=== PATIENT | female | born 1995 | race Caucasian/White ===

== ENCOUNTER 2023-11-16 09:58 | Outpatient (AMB) | payer OTHER, SELFPAY ==
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
[2023-11-16 10:25] VITALS: BP 110/60; PULSE 146; O2SAT 100; BMI 26.1
[2023-11-16 11:42] VITALS: PULSE 90
== END 2023-11-16 11:29 | disposition home or self-care (01) ==
PROVIDERS: PCP Nurse Practitioner Family; Visit Provider Nurse Practitioner Family
DX: C20 Malignant neoplasm of rectum (principal); Z93.3 Colostomy status; F20.0 Paranoid schizophrenia; C78.00 Secondary malignant neoplasm of unspecified lung; D50.8 Other iron deficiency anemias; Z02.71 Encounter for disability determination; B00.9 Herpesviral infection, unspecified; F41.1 Generalized anxiety disorder; Z09 Encounter for follow-up examination after completed treatment for conditions other than malignant neoplasm
CPT/HCPCS: 99205

== ENCOUNTER 2023-12-14 11:26 | Outpatient (AMB) | payer OTHER, SELFPAY ==
[2023-12-14 11:31] VITALS: BP 126/72; PULSE 130; O2SAT 99; BMI 25.8
--- NOTE | 2023-12-14 11:31 | A.OFFPC_ITS ---
Vital Signs 12/14/23 11:31 Height 5 ft 7 in Weight 165 lb BMI 25.8 BP 126/72 Blood Pressure Location Lt brachial Position Sitting Pulse 130 H Pulse Source Pulse Oximeter Pulse Oximetry (%) 99 Oxygen Delivery Method Room Air Intake Visit Reasons: referrals, follow up from hospital Intake Note: Pt presents to the office today for referrals, and a follow up from the hospital. Allergies bupropion [From Wellbutrin] Allergy (Intermediate, Verified 12/14/23 11:49) Unknown paroxetine [From Paxil] Allergy (Intermediate, Verified 12/14/23 11:49) Seizure Penicillins Allergy (Intermediate, Verified 12/14/23 11:49) Hives Medication List - Last Reconciled 12/14/23 by MAURA Redman-NACHO acetaminophen ER 1,300 mg (2 x 650 mg) PO Q12H 30 days clozapine 400 mg PO BEDTIME docusate sodium 100 mg PO BID enoxaparin 40 mg subcut DAILY ferrous fumarate-vitamin C 200 mg (65 mg iron)-25 mg 1 tab PO DAILY lorazepam 1 mg PO DAILY PRN ondansetron 4 mg PO Q8H PRN 30 days pantoprazole 40 mg PO DAILY prazosin 6 mg PO BEDTIME simethicone (Gas Relief (simethicone)) 125 mg PO QID PRN 30 days therapeutic multivitamin 1 tab PO DAILY valacyclovir 1,000 mg PO DAILY Tobacco use date assessed: 11/16/23 HPI HPI Comments History of Present Illness Details 27-year-old female schizophrenia, metast atic 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 Admitted for abd pain. CT showed moderate distension of bladder, concern for urinary outlet obs. Signs of osseous mets S4-S5. Nobles cath was placed with relief of pain. s/p palliative radiation x 5 sessions Consult w/ pain mgmt : morpine and oxy IR ordered. Today mom and patient report that her pain is well managed using APAP ER every morning. And as needed in the evening. Do not want to continue the opioids as they felt like this cause too much sedation and did not help greatly with the pain. Completed 5 rounds of radiation. [place] that this is helped greatly with the pain. Nobles catheter is draining yellow urine. No current issues. Wonders how long this needs to be in place. Needs prescription for adult briefs. Having anal leakage. Also having some vaginal discharge which is chronic. Has not had a consult with Mary Jimenez or Shanna Ribera yet. Reports issues with the referral process. Made aware today that [facility] does have an Oncology group. Patient and mom are very excited to hear this and are interested in setting up a referral. [facility] Medical History Back pain Tremor Imbalance Incontinence Memory loss Schizoaffective disorder Anxiety and depression Genital herpes Acid reflux IBS (irritable bowel syndrome) Cancer Surgical History History of creation of ostomy Cancer determined by lung biopsy Family History Father Substance use disorder High blood pressure Alcoholism in family Mother Substance use disorder Mental health disorder Alcoholism in family Social History Housing: House Alcohol intake: never Patient Tobacco Use Status: Never used Tobacco e-Cigarette/Vaping Use: Never Used Second Hand Smoke Exposure: No service: No Current occupational status: disabled Cognitive needs: No Hearing needs: No Vision needs: Yes (reading glasses) Questionnaire PHQ-9 Over the last 2 weeks, how often have you been bothered by any of the following problems? 1. Little interest or pleasure in doing things: more than half the days 2. Feeling down, depressed, or hopeless: more than half the days 3. Trouble falling or staying asleep, or sleeping too much: not at all 4. Feeling tired or having little energy: more than half the days 5. Poor appetite or overeating: more than half the days 6. Feeling bad about yourself - or that you are a failure or have let yourself or your family down: not at all 7. Trouble concentrating on things, such as reading the newspaper or watching television: nearly every day 8. Moving or speaking so slowly that other people could have noticed. Or the opposite - being so fidgety or restless that you have been moving around a lot more than usual: nearly every day 9. Thoughts that you would be better off or of hurting yourself in some way: not at all Total score: 14 Depression Screening Interpretation: Positive (pt has psychiatrist and medication) Depression Screening Follow-up: Existing condition and In treatment Depression Screening Done: Yes 24797 - PHQ-9 Billing: Yes Source: Developed by Drs. Garland Duron, Kristy Rincon, Christiano Terry and colleagues, with an educational doug from [employer]. Thrive Questionnaire Date Thrive assessed: 11/16/23 I am a: Patient What is your living situation today?: I have a steady place to live Within the past 12 months, did the food you bought not last and you didn't have the money to get more?: Never true Within the past 12 months, did you worry whether your food would run out before you got money to buy more?: Never true Do you have trouble paying for medicines?: No Do you have trouble getting transportation to medical appointments?: No Do you have trouble paying your heating and electricity bill?: No Do you have trouble taking care of your child, family member or friend?: No Do you have trouble with day-to-day activities such as bathing, preparing meals, shopping, managing finances, etc.?: Yes (need reminders) Are you currently unemployed and looking for a job?: No Are you interested in more education?: No Please select the resources that you would like help with: None Currently or been in a relationship where the following occur: no concerns reported THRIVE Score: 0 AUDIT C Alcohol Use Questionnaire (AUDIT-C) 1. How often do you have a drink containing alcohol?: Never 3. How often do you have six or more drinks on one occasion?: Never Total Score: 0 Score Reviewed/Action Taken: Yes CLINTON-7 AMB Questionnaire CLINTON-7 Date CLINTON - 7 assessed: 11/16/23 Feeling nervous, anxious, or on edge: 2 = More than half the days (part of disorder) Not being able to stop or control worryin = More than half the days (part of this order) Worrying too much about different things: 2 = More than half the days (part of disorder) Trouble relaxin = More than half the days Being so restless that it is hard to sit still: 2 = More than half the days (part of disorder and cancer) Becoming easily annoyed or irritable: 2 = More than half the days (part of disorder) Feeling afraid as if something awful might happen: 0 = Not at all Total CLINTON-7 score (0-4 normal; 5-9 mild; 10-14 moderate; 15-21 severe): 12 Source: Developed by Drs. Garland Duron, Kristy Rincon, Christiano Terry and colleagues, with an educational doug from [employer]. CLINTON-7 Assessment Billing CLINTON-7 Assessment Tool: CLINTON-7 Assessment 60799 Review of Systems Const All systems reviewed & are unremarkable except as noted in HPI and below Physical exam (Primary Care) Vital Signs: Last Vital Signs Pulse 130 H 12/14/23 11:31 BP 126/72 12/14/23 11:31 Pulse Ox 99 12/14/23 11:31 Oxygen Delivery Method Room Air 12/14/23 11:31 BMI result Body Mass Index 25.8 Tobacco/Smoking Status: Tobacco use Status Tobacco use date assessed 11/16/23 12/14/23 11:31 Patient Tobacco Use Status Never used Tobacco 12/14/23 11:31 e-Cigarette/Vaping Use Never Used 12/14/23 11:31 PHQ-9: PHQ-9 Score PHQ-9: Total score 14 12/14/23 11:42 Depression Screening Interpretation: Positive (pt has psychiatrist and medication) Depression Screening Follow-up: Existing condition and In treatment Thrive Assessment: Date of Thrive Assessment Date Thrive assessed 11/16/23 12/14/23 11:31 Currently or been in a relationship where the following occur: no concerns reported Const Other: Accompanied by mom, Domenica. Awake alert. Crying intermittently. Answers questions. Can become agitated quickly if she feels miss information, easily redirected, cooperative & pleasant Mucous membranes moist Regular rate and rhythm Lung sounds clear to auscultation bilat Abdomen with positive bowel sounds x4. Colostomy in the left lower quadrant with brown stool. Skin intact FC intact and draining yellow urine No edema bilateral lower extremities Assessment and Plan Assessment & Plan (1) Hospital discharge follow-up: Code(s): Z09 - Encounter for follow-up examination after completed treatment for conditions other than malignant neoplasm Plan: Prescription written for adult incontinent briefs. Okay to continue with the APAP ER 650 mg twice per day. I also agree with staying off of the narcotics if her pain is well managed without. (2) Urinary catheter in place: Comment: Placed for urinary outlet obstruction noted on CT scan. I do not have the results of the CT scan. Nobles catheter was placed on 12/01/2023. Stat referral placed to [facility]'s Urology Department for further evaluation and treatment. Code(s): Z96.0 - Presence of urogenital implants Plan: This note is constructed using voice recognition software. While every effort has been made to ensure accuracy in sheep clipper, still errors may have been included Sometimes, these errors may affect the content or meaning of the given sentence . Total time spent caring for the patient today was 60 minutes. This includes time spent before the visit reviewing the chart, time spent during the visit, and time spent after the visit on documentation (3) Rectal adenocarcinoma metastatic to lung: Comment: confirmed via biopsy 11/[address] [facility] . Family has asked for referral to [facility], including [facility] for 2nd opinions and to come up with a treatment plan. However no actual appointments have been scheduled yet other than initial consult at [facility] 12/26/23. s/p palliative radiation x 5, completed 12/12/23. She is interested in following up with [facility] oncology group for a consultation. I have placed a stat referral. This is active and current diagnosis. There is no treatment at the current time other than status post loop diverting colostomy. Code(s): C20 - Malignant neoplasm of rectum; C78.00 - Secondary malignant neoplasm of unspecified lung Plan Return to office in 4 weeks to follow-up Orders: Referrals Urology Referral Z96.0 - Presence of urogenital implants Hematology & Oncology Referral C20 - Malignant neoplasm of rectum, C78.00 - Secondary malignant neoplasm of unspecified lung Medications: New diaper,brief,adult,disposable (Briefs, Adult-Extra Large) As directed, Frontal Tape Briefs - Diaper With Tabs 30 ea 11RF R19.8 - Other specified symptoms and signs involving the digestive system and abdomen, R32 - Unspecified urinary incontinence Coding Level of Care Code TCM High MDM <= 7 Days Diagnoses Hospital discharge follow-up Z09 Ur[address] Z96.0 Rectal adenocarcinoma metastatic to lung C20; C78.00 Additional Codes CLINTON-7 Assessment Billing - CLINTON-7 Assessment Tool: CLINTON-7 Assessment 22429 ([id number])
== END 2023-12-14 12:20 | disposition home or self-care (01) ==
PROVIDERS: PCP Nurse Practitioner Family; Visit Provider Nurse Practitioner Family
DX: Z09 Encounter for follow-up examination after completed treatment for conditions other than malignant neoplasm (principal); Z96.0 Presence of urogenital implants; C20 Malignant neoplasm of rectum; C78.00 Secondary malignant neoplasm of unspecified lung
CPT/HCPCS: 99214

== ENCOUNTER 2023-12-17 10:32 | Outpatient (AMB) | payer OTHER, SELFPAY ==
--- NOTE | 2023-12-17 10:53 | A.OFFVIS_ITS ---
Intake Intake Visit Reasons: metastatic cancer/ nobles cath/VT? Intake Note: NEW Patient presents today to established treatment for Mestatatic Cancer/Nobles Cath: Meds- Prozin Allergies to Antibiotic- No Known Allergies Blood Thinner- None Post Void Residual: 0ml Cigarette Catcher Required: No Accompanied by: Mother Allergies bupropion [From Wellbutrin] Allergy (Intermediate, Verified 12/20/23 17:09) Unknown paroxetine [From Paxil] Allergy (Intermediate, Verified 12/20/23 17:09) Seizure Penicillins Allergy (Intermediate, Verified 12/20/23 17:09) Hives Medication List - Last Reviewed 12/17/23 by Lilly Adams CMA acetaminophen ER 1,300 mg (2 x 650 mg) PO Q12H 30 days clozapine 400 mg PO BEDTIME diaper,brief,adult,disposable (Briefs, Adult-Extra Large) As directed, Frontal Tape Briefs - Diaper With Tabs docusate sodium 100 mg PO BID enoxaparin 40 mg subcut DAILY ferrous fumarate-vitamin C 200 mg (65 mg iron)-25 mg 1 tab PO DAILY lorazepam mg PO ondansetron 4 mg PO Q8H PRN 30 days pantoprazole 40 mg PO DAILY prazosin 6 mg PO BEDTIME simethicone (Gas Relief (simethicone)) 125 mg PO QID PRN 30 days therapeutic multivitamin 1 tab PO DAILY valacyclovir 1,000 mg PO DAILY HPI HPI Comments History of Present Illness Details Maria D is a 27-year-old female with history of schizophrenia diagnosed with metastatic rectal cancer. She is here for evaluation due to urinary retention she has a Nobles in place. The patient presents with her mom who gives part of the history. She states that after the surgery for colostomy placement her daughter was on a lot of pain medication including morphine which she feels contributed to the bladder problem. She is currently only on Tylenol 650 mg twice a day p.r.n. she states that she has also completed radiation. Voiding trial today was successful. Follow up in one month. PENDING SALE TO [facility] Medical History Back pain Tremor Imbalance Incontinence Memory loss Schizoaffective disorder Anxiety and depression Genital herpes Acid reflux IBS (irritable bowel syndrome) Cancer Surgical History History of creation of ostomy Cancer determined by lung biopsy Family History Father Substance use disorder High blood pressure Alcoholism in family Mother Substance use disorder Mental health disorder Alcoholism in family Social History Housing: House Alcohol intake: never Patient Tobacco Use Status: Never used Tobacco e-Cigarette/Vaping Use: Never Used Second Hand Smoke Exposure: No service: No Current occupational status: disabled Cognitive needs: No Hearing needs: No Vision needs: Yes (reading glasses) Review of Systems Const All systems reviewed & are unremarkable except as noted in HPI and below Reports no additional complaints Eyes Reports no additional complaints ENT Reports no additional complaints Card Denies dyspnea Resp Denies cough and Denies dyspnea GI Reports no additional complaints Reports no additional complaints Musc Reports no additional complaints Skin/Breast Reports system reviewed and no additional complaints, except as documented Neuro Reports no additional complaints Psych Reports no additional complaints Endo Reports no additional complaints Isaias/Lymph Reports no additional complaints Aller/Immun Reports no additional complaints Physical Exam Const General: cooperative, healthy appearing and no acute distress Orientation/consciousness: patient oriented x3 HEENT Head: Yes normal to inspection, Yes normocephalic and Yes atraumatic Eyes Conjunctivae: conjunctivae normal Neck Neck: Yes normal visual inspection and Yes trachea midline Chest Chest palpation & inspection: normal inspection of the chest Resp Effort & Inspection: normal respiratory effort Cardio Rate: regular rate GI Other: Colostomy noted on the lower abdomen Inspection: Yes normal to inspection Palpation (GI): Soft to palpation Other: Nobles in place Skin General skin exam: no rashes or lesions noted Neuro General: patient oriented x3 Extrem General: No edema Psych Appearance: grossly normal Office Procedures Bladder/Catheter Procedure Details: Patient presents to office for voiding trial. Instilled 120mls of sterile water through catheter. 16 fr catheter removed, patient tolerated well. DANNY to bladder scan patient. 61548-Ilyflrbowm of Bladder Procedure code (CPT) selection complete Post Void Residual Post Residual Void Post Void Residual (PVR): 0 64170-Zfhr Void Residual by ultrasound Assessment & Plan Assessment & Plan (1) Urinary catheter in place: Comment: Placed for urinary outlet obstruction noted on CT scan. I do not have the results of the CT scan. Nobles catheter was placed on 12/01/2023. Stat referral placed to [facility]'s Urology Department for further evaluation and treatment. Code(s): Z96.0 - Presence of urogenital implants (2) Presence of sigmoid colostomy: Comment: diverting loop colostomy Code(s): Z93.3 - Colostomy status (3) Schizophrenia: Comment: lives in [facility]; managed by Psychiatry Code(s): F20.9 - Schizophrenia, unspecified Qualifiers: Schizophrenia type: paranoid schizophrenia Qualified Code(s): F20.0 - Paranoid schizophrenia (4) Rectal adenocarcinoma metastatic to lung: Comment: confirmed via biopsy 11/2023 at [facility] . Family has asked for referral to [facility], including [facility] for 2nd opinions and to come up with a treatment plan. However no actual appointments have been scheduled yet other than initial consult at [facility] 12/26/23. s/p palliative radiation x 5, completed 12/12/23. She is interested in following up with [facility]'s oncology group for a consultation. I have placed a stat referral. This is active and current diagnosis. There is no treatment at the current time other than status post loop diverting colostomy. Code(s): C20 - Malignant neoplasm of rectum; C78.00 - Secondary malignant neoplasm of unspecified lung Plan Voiding trial today was successful. Follow-up in 1 month Orders: Orders AMB Bladder/Catheter Procedure 12/17/23 Z96.0 - Presence of urogenital implants AMB Post Void Residual by ultrasound 12/17/23 R33.9 - Retention of urine, unspecified Medications: New lorazepam mg PO Patient Instructions: The patient had an opportunity to ask questions regarding treatment plan. All questions were answered. The patient expressed understanding and agreement with the above treatment plan. The patient is aware they should contact our office by phone for worsening of their current condition or the appearance of new symptoms. Compliance is encouraged with any medications and followup testing that is ordered. It is a privilege to be allowed the opportunity to participate in the urologic care of your patient. If you have any questions or concerns regarding treatment for the above conditions please do not hesitate to contact me. The office telephone contact is [phone]. This note is constructed in part using voice recognition software. While every effort has been made to ensure accuracy tire curer errors may have been included. Yours sincerely, Deon Miranda MD Coding Level of Care Code New Pt Level 3 (20354) Diagnoses Urinary catheter in place Z96.0 Presence of sigmoid colostomy Z93.3 Paranoid schizophrenia F20.0 Schizophrenia type: paranoid schizophrenia Rectal adenocarcinoma metastatic to lung C20; C78.00 CPT Codes Bladder/Catheter Procedure - CPT: 13233-Rjixpwmtox of Bladder ([id number]) Post Residual Void - PVR CPT Code: 39314-Vbmw Void Residual by ultrasound ([id number])
== END 2023-12-17 12:02 | disposition home or self-care (01) ==
PROVIDERS: PCP Nurse Practitioner Family; Visit Provider Urology
DX: Z96.0 Presence of urogenital implants (principal); Z93.3 Colostomy status; F20.0 Paranoid schizophrenia; C20 Malignant neoplasm of rectum; C78.00 Secondary malignant neoplasm of unspecified lung
CPT/HCPCS: 51700; 99203

== ENCOUNTER → 2023-12-17 10:52 | Outpatient (BNVA) | payer OTHER, SELFPAY | PROVIDERS: PCP Nurse Practitioner Family; Visit Provider Urology | DX: Z96.0 Presence of urogenital implants (principal); Z93.3 Colostomy status; R33.9 Retention of urine, unspecified; F20.0 Paranoid schizophrenia; C20 Malignant neoplasm of rectum; C78.00 Secondary malignant neoplasm of unspecified lung | CPT/HCPCS: 51700; 51798; 99202 ==

== ENCOUNTER → 2023-12-20 15:53 | Outpatient (BNVA) | payer OTHER, SELFPAY | PROVIDERS: PCP Nurse Practitioner Family; Visit Provider Urology ==

== ENCOUNTER 2023-12-20 16:19 | Emergency (ER) | payer OTHER, SELFPAY ==
--- NOTE | ~2023-12-20 | CT_ITS ---
EXAMINATION: CT ABDOMEN AND PELVIS WITHOUT CONTRAST CLINICAL INFORMATION: Difficulty voiding. Pain. COMPARISON: No CT abdomen pelvis available at this time. TECHNIQUE: Multidetector volumetric imaging was performed from the superior aspect of the liver through the pubic symphysis. Sagittal and coronal reformatted images were obtained on the technologist's workstation. This CT examination was performed using dose optimization techniques as appropriate, variously including the following: *Automated exposure control *Adjustment of mA and/or kV according to patient size (this includes techniques or standardized protocols for targeted exams where dose is matched to indication/reason for exam; i.e. extremities or head) *Use of iterative reconstruction technique DLP: 593 mGy-cm. FINDINGS: LUNG BASES: There is a 1.3 cm nodule right lower lobe and lingular segments on axial slice 6/5 and axial slice 2/5. Heart size appears normal. LIVER, GALLBLADDER, AND BILIARY TREE: The liver is normal in size, shape, and attenuation. No focal hepatic lesion or biliary ductal dilatation is present. The gallbladder is unremarkable with no evidence of radiopaque gallstones, gallbladder wall thickening, or obvious pericholecystic inflammatory changes. PANCREAS: Unremarkable. SPLEEN: The spleen is mildly enlarged measuring 16 cm in AP length. ADRENAL GLANDS: Unremarkable. KIDNEYS AND URETERS: The kidneys are normal in size, shape, and attenuation. No hydronephrosis, hydroureter, or calculi seen. No perinephric stranding. BLADDER: There is a Camejo's catheter in an empty bladder. GASTROINTESTINAL TRACT: There is a left mid to lower quadrant descending colon colostomy with radiodense material within the distal segment of sigmoid colon. The colostomy contains a descending colon as well. There is scattered stool in the rest the colon consistent mild constipation. The small bowel loops are normal caliber. Appendix is not visualized. No free air or free fluid seen. ABDOMINAL WALL: No significant hernia is appreciated. LYMPH NODES: There are numerous abnormal left internal iliac lymph nodes with the largest lymph node measuring 1.6 cm on axial slice 67/3. VASCULAR: Unremarkable. PELVIC VISCERA: There is moderate pre-sacral soft tissue density/mass. Recurrence cannot be excluded. There is no fat plane between the presacral mass, urinary bladder or the anteverted uterus. There is no previous CT available for comparison. There is a visualization of a thick-walled sigmoid colon extending to the colostomy. The uterus is anteverted with no fat plane seen between the presacral mass, the uterus/cervix and the bladder. OSSEOUS STRUCTURES: No aggressive lytic or sclerotic process seen. CT/CT abdomen pelvis wo IV con IMPRESSION: 1. Moderate pre-sacral soft tissue density/mass. There is a thick-walled sigmoid colon extending to the colostomy. 2. Abnormal left internal iliac lymph nodes. Findings are strongly suspicious of presacral residual mass with metastatic lymph nodes and metastatic lung nodules. 3. Mild splenomegaly. 4. 1.3 cm nodule right lower lobe and lingular segment. Recommend correlation with any previous CT abdomen and pelvis exam. Fleischner guidelines were followed.
--- NOTE | 2023-12-20 16:45 | ED_ITS ---
HPI - General Adult General Chief complaint: Urogenital-Female Stated complaint: unable to void, sent from office Time Seen by Provider: 12/20/23 18:26 Source: patient, family, RN notes reviewed and old records reviewed Mode of arrival: ambulatory Limitations: no limitations History of Present Illness HPI narrative: 27-year-old female with past medical history significant for metastatic rectal cancer with colostomy, chronic urinary catheter due to outlet obstruction presents for evaluation of urinary retention. Patient also has history of genital herpes. She reports that she has having an active flare and ?it is sensitive down there. ? She complains of 10/10 pain to her lower abdomen and pelvic area Patient had a Camejo catheter removed on Sunday and she states that she has been urinating well until 9:00 a.m. this morning Denies any fevers, chills Related Data Home Medications Medication Instructions Recorded Confirmed clozapine 200 mg tablet 400 mg PO BEDTIME 11/16/23 12/17/23 enoxaparin 40 mg/0.4 mL 40 mg subcut DAILY 11/16/23 12/17/23 subcutaneous syringe pantoprazole 40 mg tablet,delayed 40 mg PO DAILY 11/16/23 12/17/23 release prazosin 2 mg capsule 6 mg PO BEDTIME 11/16/23 12/17/23 valacyclovir 1 gram tablet 1,000 mg PO DAILY 11/16/23 12/17/23 lorazepam 0.5 mg tablet mg PO 12/17/23 Previous Rx's Medication Instructions Recorded acetaminophen 650 mg 1,300 mg (2 x 650 mg) PO Q12H 30 11/16/23 tablet,extended release days #120 tabs ondansetron 4 mg disintegrating 4 mg PO Q8H PRN nausea and 11/16/23 tablet vomiting 30 days #90 tabs simethicone 125 mg chewable tablet 125 mg PO QID PRN abdominal 11/16/23 (Gas Relief (simethicone)) distention 30 days #120 tabs docusate sodium 100 mg capsule 100 mg PO BID #60 caps 11/23/23 therapeutic multivitamin 1 tab PO DAILY #90 tabs 11/23/23 ferrous fumarate 200 mg (65 mg 1 tab PO DAILY #90 tabs 11/27/23 iron)-vit C 25 mg tablet,extend release diaper,brief,adult,disposable #30 ea 12/14/23 (Briefs, Adult-Extra Large) Allergies Allergy/AdvReac Type Severity Reaction Status Date / Time bupropion [From Wellbutrin] Allergy Intermediate Unknown Verified 12/20/23 17:09 paroxetine [From Paxil] Allergy Intermediate Seizure Verified 12/20/23 17:09 Penicillins Allergy Intermediate Hives Verified 12/20/23 17:09 Review of Systems 2 Constitutional: Constitutional: Denies chills and Denies fever(s) ENT: Denies sore throat Cardiovascular: Cardiovascular: Denies chest pain and Denies dyspnea Respiratory: Respiratory: Denies cough and Denies dyspnea Gastrointestinal: Gastrointestinal: Reports abdominal pain, Denies nausea and Denies vomiting Genitourinary: Genitourinary: Reports pelvic pain and Denies vaginal discharge Musculoskeletal: Musculoskeletal: Denies back pain Integumentary/Breasts: Skin/Breast: Denies rash PMFSH Past Medical History Medical History Back pain Tremor Imbalance Incontinence Memory loss Schizoaffective disorder Anxiety and depression Genital herpes Acid reflux IBS (irritable bowel syndrome) Cancer Surgical History History of creation of ostomy Cancer determined by lung biopsy Family History Family History Father Substance use disorder High blood pressure Alcoholism in family Mother Substance use disorder Mental health disorder Alcoholism in family Social History Social History Housing: House Alcohol intake: never Patient Tobacco Use Status: Never used Tobacco e-Cigarette/Vaping Use: Never Used Second Hand Smoke Exposure: No Advance Directives: No Advance Directives Information Provided: No service: No Current occupational status: disabled Cognitive needs: No Hearing needs: No Vision needs: Yes (reading glasses) Physical Exam ED Vital Signs: Vital Signs - 24 hr 12/20/23 17:10 12/20/23 21:22 Temperature 98.7 F 97.3 F Pulse Rate 75 106 H Respiratory Rate 16 16 Blood Pressure 138/70 106/59 L Pulse Oximetry 97 98 Oxygen Delivery Method Room Air Room Air BMI result Body Mass Index 0.0 Const General: healthy appearing, alert and awake Nutritional Appearance: well nourished Orientation/consciousness: patient oriented x3 HENMT Head: Yes normocephalic and Yes atraumatic Eyes Eyelids: Yes eyelids normal Conjunctivae: conjunctivae normal Sclerae: sclerae normal Corneas: corneas normal Pupils: Equal, round and reactive pupils present EOM: EOMs intact bilaterally Neck Neck: Yes full ROM Resp Effort & Inspection: normal respiratory effort, able to speak in complete sentences and not labored GI Other: Colostomy present Palpation (GI): Firmness to palpation present (GI), Tenderness to palpation present (GI) suprapubicly and Guarding due to palpation present (GI) (Suprapubic) Skin General skin exam: elasticity normal Neuro General: patient oriented x3 Cranial nerves: Yes Equal, round and reactive pupils present and Yes Bilaterally intact EOM present Cognition (Neuro): normal cognition Extrem Other: Moving all extremities well without any obvious deformities Course Course Course Narrative: This is an RME: Additional HPI, ROS, PE not included below will be deferred to primary provider. 27 year old female hx of rectal adenocarcinoma w/ mets to the lung, siddhartha, iron defficiency anemia, genital herpes ( currently active ) Coming from urology. PE w/ pain around stoma Reevaluation(s) Reevaluation #1: Camejo catheter was inserted without issue, UA does not appear to show acute infection. Patient's CT scan shows colonic mass concerning for malignancy which is a known issue. The patient is already aware that she has metastases as well. Per the patient's mother, the patient is in the process of following up with Oncology. They are deciding between [facility], and [facility]. Time: 22:12 Medications Administered Discontinued Medications Generic Name Dose Route Start Last Admin Trade Name Freq PRN Reason Stop Dose Admin Hydromorphone HCl 1 mg 12/20/23 19:11 12/20/23 19:19 Hydromorphone Hcl 1 Mg/Ml Syringe IM 12/20/23 19:12 1 mg ONCE ONE Administration Protocol Lidocaine HCl 20 ml 12/20/23 18:29 12/20/23 18:39 Lidocaine Hcl 2 % Urojet 10 Ml Jel.Pf.Edgar TOPICAL 12/20/23 18:30 20 ml ONCE ONE Administration Lorazepam 1 mg 12/20/23 18:29 12/20/23 18:39 Lorazepam 1 Mg Tablet PO 12/20/23 18:30 1 mg ONCE ONE Administration Ondansetron HCl 4 mg 12/20/23 19:07 12/20/23 19:19 Ondansetron Odt 4 Mg Tab.Lynnettecristofer SARAINGU 12/20/23 19:08 4 mg ONCE ONE Administration Medical Decision Making Medical Decision Making MDM Narrative: Patient unable to tolerate Camejo catheter without medication. I ordered viscous lidocaine via year old jet as well as Ativan 1 mg p.o. patient's labs are significant for a microcytic anemia, chemistry without any significant abnormalities. Differential Diagnosis Differential Diagnoses: The differential diagnosis associated with the presentation includes Urinary retention Genital herpes UTI Urinary outlet obstruction Lab Data 12/20/23 16:57 12/20/23 16:57 Labs: Lab Results 12/20/23 12/20/23 Range/Units 16:57 19:10 WBC 6.9 (4.8-10.8) X10*3/uL RBC 4.61 (4.20-5.50) X10*6/uL Hgb 9.7 L (12.0-16.0) g/dl Hct 31.3 L (37.0-47.0) % MCV 67.9 L (80.0-98.0) fL MCH 21.0 L (27.0-33.0) pg MCHC 31.0 (31.0-35.0) g/dl RDW 22.0 H (11.0-16.0) % Plt Count 533 H (160-400) X10*3/uL MPV 8.0 L (9.4-12.3) fL Immature Gran % (Auto) 0.4 (0.0-0.4) % Neut % (Auto) 71.5 (45-73) % Lymph % (Auto) 14.9 L (20-40) % [place] % (Auto) 9.0 (2-11) % Eos % (Auto) 3.8 (0-4) % Baso % (Auto) 0.4 (0-2) % Lymph # (Auto) 1.0 L (1.2-4.9) X10*3/uL [place] # (Auto) 0.6 (0.1-1.2) X10*3/uL Eos # (Auto) 0.3 (0.0-0.4) X10*3/uL Baso # (Auto) 0.0 (0.0-0.2) X10*3/uL Abs Immat Gran (auto) 0.03 (0.00-0.03) X10*3/uL Absolute Neuts (auto) 4.9 (2.0-8.3) x10*3/uL Absolute Nucleated RBC 0.000 (0.0-0.012) X10*3/uL Nucleated RBC % (auto) 0.0 (0.0-0.2) /100WBC Sodium 140 (135-145) mmol/L Potassium 3.6 (3.3-5.1) mmol/L Chloride 107 (96-108) mmol/L Carbon Dioxide 22 (22-29) mmol/L Anion Gap 15 (12-20) BUN 9 (9-16) mg/dL Creatinine 0.69 (0.5-1.4) mg/dL Estim Creat Clear Calc TNP Estimated GFR > 60 Random Glucose 87 (60-115) mg/dL Calcium 9.8 (8.4-10.2) mg/dL Total Bilirubin 0.3 (0.0-1.0) mg/dL AST 18 (5-31) U/L ALT 19 (0-31) U/L Alkaline Phosphatase 133 H (39-117) U/L Total Protein 7.4 (6.5-8.0) g/dL Albumin 4.1 (3.5-5.0) g/dL Urine Color Yellow Urine Appearance Clear Urine pH 7.0 (5.0-9.0) Ur Specific [place] 1.010 (1.005-1.025) Urine Protein Negative (Neg-Trace) mg/dL Urine Glucose (UA) Negative (Negative) mg/dL Urine Ketones Negative (Negative) mg/dL Urine Blood Negative (Negative) Urine Nitrite Negative (Negative) Ur Leukocyte Esterase Negative (Negative) Urine Test NEGATIVE (NEGATIVE) Discharge Plan Discharge Clinical Impression: Acute urinary retention, Rectal cancer Patient Disposition: Home, Self-Care Instructions: Acute Urinary Retention in Women (ED) Additional Instructions: Call your urologist tomorrow morning to schedule follow-up. I would not recommend removing the catheter until your herpes flare has improved to avoid repeat issues Follow-up with your oncologist as well given the rectal mass Return for new or worsening symptoms Prescriptions: No Action docusate sodium 100 mg capsule 100 mg PO BID Qty: 60 1RF Rx Instructions: hold for diarrhea therapeutic multivitamin Tablet 1 tab PO DAILY Qty: 90 2RF pantoprazole 40 mg tablet,delayed release (DR/EC) 40 mg PO DAILY clozapine 200 mg tablet 400 mg PO BEDTIME prazosin 2 mg capsule 6 mg PO BEDTIME valacyclovir 1 gram tablet 1,000 mg PO DAILY enoxaparin 40 mg/0.4 mL syringe 40 mg subcut DAILY ondansetron 4 mg tablet,disintegrating 4 mg PO Q8H PRN (Reason: nausea and vomiting) 30 Days Qty: 90 0RF simethicone [Gas Relief (simethicone)] 125 mg tablet,chewable 125 mg PO QID PRN (Reason: abdominal distention) 30 Days Qty: 120 3RF acetaminophen 650 mg tablet extended release 1,300 mg PO Q12H 30 Days Qty: 120 2RF Rx Instructions: do not exceed 3grams/ day ferrous fumarate-vitamin C 200 mg (65 mg iron)-25 mg tablet extended release 1 tab PO DAILY Qty: 90 0RF (DME) Briefs, Adult-Extra Large Misc See Rx Instructions .Route Qty: 30 11RF Rx Instructions: As directed, Frontal Tape Briefs - Diaper With Tabs lorazepam 0.5 mg tablet PO
[2023-12-20 17:03] LABS: MANUAL DIFF FLAG NO
[2023-12-20 17:05] LABS: Basophils Percent Auto 0.4 % (0-2); Eosinophils Absolute Auto 0.3 X10*3/uL (0.0-0.4); Eosinophils Percent Auto 3.8 % (0-4); Hematocrit 31.3 % (37.0-47.0); Hemoglobin 9.7 g/dl (12.0-16.0); Imm Gran Abs Auto 0.03 X10*3/uL (0.00-0.03); Imm Gran Pct Auto 0.4 % (0.0-0.4); Lymphocytes Percent Auto 14.9 % (20-40); Mean Corpuscular Volume 67.9 fL (80.0-98.0); Monocytes Absolute Auto 0.6 X10*3/uL (0.1-1.2); Neutrophils Absolute Auto 4.9 x10*3/uL (2.0-8.3); Neutrophils Percent Auto 71.5 % (45-73); Platelet Count 533 X10*3/uL (160-400); Red Blood Count 4.61 X10*6/uL (4.20-5.50); White Blood Count 6.9 X10*3/uL (4.8-10.8)
[2023-12-20 17:10] VITALS: BP 138/70; PULSE 75; RESP 16; TEMP 37.1; O2SAT 97
[2023-12-20 17:19] LABS: Alanine Aminotransferase 19 U/L (0-31); Albumin Level 4.1 g/dL (3.5-5.0); Alkaline Phosphatase 133 U/L (39-117); Anion Gap 15 (12-20); Aspartate Amino Transferase 18 U/L (5-31); Bilirubin Total 0.3 mg/dL (0.0-1.0); Blood Urea Nitrogen 9 mg/dL (9-16); Calcium 9.8 mg/dL (8.4-10.2); Carbon Dioxide 22 mmol/L (22-29); Chloride 107 mmol/L (96-108); Estimated Glomerular Filt Rate > 60; Glucose Random 87 mg/dL (60-115); Potassium 3.6 mmol/L (3.3-5.1); Sodium 140 mmol/L (135-145); Total Protein 7.4 g/dL (6.5-8.0)
[2023-12-20] MEDS: LORazepam 1 MG TABLET PO (18:39)
[2023-12-20] MEDS: Lidocaine HCl 2 % Urojet 10 ML JEL.PF.APP 20 ML TOPICAL (18:39)
[2023-12-20 19:18] LABS: Appearance Urine Clear; Color Urine Yellow; Glucose Urine UA Negative (Negative); Leukocyte Esterase Urine Negative (Negative); Nitrite Urine Negative (Negative); Urine Blood Negative (Negative); Urine Ketones Negative (Negative); Urine Protein Negative (Neg-Trace)
[2023-12-20 19:19] LABS: UPreg QC Valid YES; Urine Pregnancy NEGATIVE (NEGATIVE)
[2023-12-20] MEDS: Ondansetron ODT 4 MG TAB.RAPDIS TRANSLINGU (19:19)
[2023-12-20] MEDS: HYDROmorphone HCl 1 MG/ML SYRINGE IM (19:19)
--- NOTE | 2023-12-20 19:35 | PC.NURSE ---
patient a&ox3, pt was crying requesting pain medications for rectal and abd pain. Bladder scan was performed with close to 500 noted on scan, provider was notified and pt was ordered a nobles, upon this nurse going to do the nobles pt got very agitated crying stating that it hurts down there pts mother stated that she has a STI with a current outbreak, provider was notified and ordered urojet to numb the area prior to inserting nobles, pt was also given PO ativan for her anxiety, this nurse was able to insert a 16F nobles which had immediate output of 1,000ml of concentrated but clear yellow urine. Pt continued to cry stating it feels like the tumor is coming out of my butt the provider was notified, pt was medicated with zofran and dilaudid for pain. currently pt is calm in room awaiting her CT scan. Call llanes is within reach, mother is at bedside, will continue to monitor
[2023-12-20 21:22] VITALS: BP 106/59; PULSE 106; RESP 16; TEMP 36.3; O2SAT 98
[2023-12-20 23:41] VITALS: BP 113/72; PULSE 98; RESP 14; TEMP 36.7; O2SAT 98
--- NOTE | 2023-12-21 08:27 | MHC.CM.ED ---
Received telephone call from Nela of [facility]. Patient is active with their agency. [facility]
== END 2023-12-20 23:42 | disposition home or self-care (01) ==
PROVIDERS: Physician Assistant; Emergency Provider Internal Medicine; PCP Nurse Practitioner Family
DX: R33.9 Retention of urine, unspecified (principal); R10.30 Lower abdominal pain, unspecified; Z79.899 Other long term (current) drug therapy
CPT/HCPCS: 36415; 51702; 51798; 74176; 80053; 81003; 81025; 85025; 96372; 99284; 99285; J1170

== ENCOUNTER → 2024-01-09 09:55 | Outpatient (BNVA) | payer OTHER, SELFPAY | PROVIDERS: PCP Nurse Practitioner Family; Visit Provider Urology | DX: R33.8 Other retention of urine (principal); Z96.0 Presence of urogenital implants | CPT/HCPCS: 51700; 51798 ==

== ENCOUNTER 2024-01-18 13:09 | Outpatient (REF) | payer OTHER, SELFPAY | END 2024-01-18 13:10 | disposition home or self-care (01) | LOC: HO.LAB 13:09 | PROVIDERS: PCP Nurse Practitioner Family; Visit Provider Urology | DX: N39.0 Urinary tract infection, site not specified (principal); C79.9 Secondary malignant neoplasm of unspecified site | CPT/HCPCS: 81003; 87086; 99212 ==

== ENCOUNTER 2024-01-18 13:09 | Outpatient (AMB) | payer OTHER, SELFPAY ==
--- NOTE | 2024-01-18 13:18 | A.OFFVIS_ITS ---
Intake Visit Reasons: follow up/est plan of care Intake Note: Patient presents to established fu urinary retention: Meds- Prozin Allergies to Antibiotic- Penicillins Blood Thinner- None Post Void Residual: 106 ml Anchor Tack Puller Required: No Accompanied by: Mother Allergies bupropion [From Wellbutrin] Allergy (Intermediate, Verified 02/19/24 12:47) Unknown paroxetine [From Paxil] Allergy (Intermediate, Verified 02/19/24 12:47) Seizure Penicillins Allergy (Intermediate, Verified 02/19/24 12:47) Hives HPI Comments Details: 01/18/2024--Maria D is a 28-year-old female who was initially evaluated on 12/17/2023 for urinary retention, she presented with a Camejo in place and had successful voiding trial. She is here with her mother end-stage she has been urinating without any difficulty. Urinalysis no signs of infection. Bladder scan PVR 106 mL, acceptable. Patient is a call for any urinary symptoms. Review of chart: 12/17/2023--Maria D is a 27-year-old female with history of schizophrenia diagnosed with metastatic rectal cancer. She is here for evaluation due to urinary retention she has a Camejo in place. The patient presents with her mom who gives part of the history. She states that after the surgery for colostomy placement her daughter was on a lot of pain medication including morphine which she feels contributed to the bladder problem. She is currently only on Tylenol 650 mg twice a day p.r.n. she states that she has also completed radiation. Voiding trial today was successful. Follow up in one month. [facility] Medical History (Updated 02/24/24 @ 11:09 by Deon Miranda MD) Back pain Tremor Imbalance Incontinence Memory loss Schizoaffective disorder Anxiety and depression Genital herpes Acid reflux IBS (irritable bowel syndrome) Cancer Surgical History History of creation of ostomy Cancer determined by lung biopsy Family History Father Substance use disorder High blood pressure Alcoholism in family Mother Substance use disorder Mental health disorder Alcoholism in family Social History Housing: House Alcohol intake: never Patient Tobacco Use Status: Never used Tobacco e-Cigarette/Vaping Use: Never Used Second Hand Smoke Exposure: No service: No Current occupational status: disabled Cognitive needs: No Hearing needs: No Vision needs: Yes (reading glasses) Review of Systems Const All systems reviewed & are unremarkable except as noted in HPI and below Reports no additional complaints Eyes Reports no additional complaints ENT Reports no additional complaints Card Reports no additional complaints Resp Reports no additional complaints GI Reports no additional complaints Reports as per HPI Musc Reports no additional complaints Skin/Breast Reports system reviewed and no additional complaints, except as documented Neuro Reports no additional complaints Psych Reports no additional complaints Endo Reports no additional complaints Isaias/Lymph Reports no additional complaints Aller/Immun Reports no additional complaints Results AMB Urinalysis, Automated UA Leukoctes 70 [place]/uL Last Edit by DALIA Zapata on 01/18/24 13:26 1+ Peri [place] 01/18/24 13:26 UA Nitrite Negative Last Edit by DALIA Zapata on 01/18/24 13:26 UA Urobilinogen 0.2 mg/dL Last Edit by DALIA Zapata on 01/18/24 13:2 6 UA Protein 15 mg/dL Last Edit by DALIA Zapata on 01/18/24 13:26 UA pH 6.5 Last Edit by DALIA Zapata on 01/18/24 13:26 UA Blood 0 Kem/uL Last Edit by DALIA Zapata on 01/18/24 13:26 UA Specific [place] 1.010 Last Edit by DALIA Zapata on 01/18/24 13: 26 UA Ketone Positive Last Edit by DALIA Zapata on 01/18/24 13:26 UA Bilirubin 1 mg/dL Last Edit by DALIA Zapata on 01/18/24 13:26 UA Glucose 0 mg/dL Last Edit by DALIA Zapata on 01/18/24 13:26 Results Reviewed Results Reviewed: Laboratory Last Values Urine pH (Auto) 6.5 01/18/24 13:25 Specific [place] (Auto) 1.010 01/18/24 13:25 Urine Protein (Auto) 15 mg/dL 01/18/24 13:25 Glucose (UA)(Auto) 0 mg/dL 01/18/24 13:25 Urine Ketones (Auto) Positive 01/18/24 13:25 Urine Blood (Auto) 0 Kem/uL 01/18/24 13:25 Urine Nitrite (Auto) Negative 01/18/24 13:25 Urine Bilirubin (Auto) 1 mg/dL 01/18/24 13:25 Urine Urobilinogen (Auto) 0.2 mg/dL 01/18/24 13:25 Leukocyte Esterase (Auto) 70 [place]/uL 01/18/24 13:25 Assessment & Plan Assessment & Plan (1) Presence of sigmoid colostomy: Comment: diverting loop colostomy Code(s): Z93.3 - Colostomy status Category: Medical (2) [facility] Code(s): F20.9 - Schizophrenia, unspecified Category: Medical Qualifiers: Schizophrenia type: paranoid schizophrenia Qualified Code(s): F20.0 - Paranoid schizophrenia (3) Rectal adenocarcinoma metastatic to lung: Code(s): C20 - Malignant neoplasm of rectum; C78.00 - Secondary malignant neoplasm of unspecified lung Category: Medical (4) Urinary retention: Code(s): R33.9 - Retention of urine, unspecified Category: Medical Plan Rectal cancer. The patient had episode of urinary incontinence. Currently is voiding and emptying adequately. Will continue to monitor voiding, patient call for any urinary symptoms, follow- up in 3 months. Orders: Orders AMB Urinalysis Automated 01/18/24 Z13.9 - Encounter for screening, unspecified AMB Post Void Residual by ultrasound 01/18/24 N39.8 - Other specified disorders of urinary system Urine Culture 01/18/24 N39.0 - Urinary tract infection, site not specified Patient Instructions: The patient had an opportunity to ask questions regarding treatment plan. The patient expressed understanding and agreement with the above treatment plan. The patient is aware they should contact our office by phone for worsening of their current condition or the appearance of new symptoms. Compliance is encouraged with any medications and followup testing that is ordered. It is a privilege to be allowed the opportunity to participate in the urologic care of your patient. If you have any questions or concerns regarding treatment for the above conditions please do not hesitate to contact me. The office telephone contact is [phone]. This note is constructed in part using voice recognition software. While every effort has been made to ensure accuracy wash helper errors may have been included. Yours sincerely, Deon Miranda MD Coding Level of Care Code Est Pt Level 3 (34979) Diagnoses Presence of sigmoid colostomy Z93.3 Paranoid schizophrenia F20.0 Schizophrenia type: paranoid schizophrenia Rectal adenocarcinoma metastatic to lung C20; C78.00 Urinary retention R33.9
== END 2024-01-18 13:31 | disposition home or self-care (01) ==
PROVIDERS: PCP Nurse Practitioner Family; Visit Provider Urology
DX: Z93.3 Colostomy status (principal); F20.0 Paranoid schizophrenia; C20 Malignant neoplasm of rectum; C78.00 Secondary malignant neoplasm of unspecified lung; R33.9 Retention of urine, unspecified
CPT/HCPCS: 99213

== ENCOUNTER 2024-02-19 12:38 | Outpatient (AMB) | payer OTHER, SELFPAY ==
--- NOTE | 2024-02-19 12:45 | MHC.PC.OV ---
Vital Signs 02/19/24 12:46 Height 5 ft 7 in Weight 159 lb BMI 24.9 BP 98/44 L Blood Pressure Location Lt brachial Position Sitting Pulse 122 H Pulse Source Pulse Oximeter Pulse Oximetry (%) 98 Oxygen Delivery Method Room Air Intake Visit Reasons: seasonal allergies with chemo Allergies bupropion [From Wellbutrin] Allergy (Intermediate, Verified 02/19/24 12:47) Unknown paroxetine [From Paxil] Allergy (Intermediate, Verified 02/19/24 12:47) Seizure Penicillins Allergy (Intermediate, Verified 02/19/24 12:47) Hives Medication List - Last Reconciled 02/19/24 by MAURA Redman-BC acetaminophen ER 1,300 mg (2 x 650 mg) PO Q12H 30 days albuterol sulfate 90 mcg/actuation 2 puffs inhalation Q6H PRN clozapine 400 mg PO BEDTIME diaper,brief,adult,disposable (Briefs, Adult-Extra Large) As directed, Frontal Tape Briefs - Diaper With Tabs docusate sodium 100 mg PO BID ferrous fumarate-vitamin C 200 mg (65 mg iron)-25 mg 1 tab PO DAILY lorazepam mg PO nitrofurantoin monohyd/m-cryst 100 mg (Macrobid) 100 mg PO BID 5 days ondansetron 4 mg PO Q8H PRN 30 days pantoprazole 40 mg PO DAILY polyethylene glycol 3350 (Miralax) 17 grams PO DAILY prazosin 6 mg PO BEDTIME simethicone (Gas Relief (simethicone)) 125 mg PO QID PRN 30 days therapeutic multivitamin 1 tab PO DAILY valacyclovir 1,000 mg PO DAILY Tobacco use date assessed: 11/16/23 Dental Screening Dental Screen Date: 11/16/23 HPI HPI Comments History of Present Illness Details Here today w/ c/o allergy sx. Itchy eyes, nose and throat. The wheezing she had during the URI is improved; using Albuterol sparingly Wonders if she has allergy to cat and luis litter - this is new exposure for her years ago was using benadryl and tolerated this; has never been on daily antihistamine worries about interactions w/ current meds. Also complaints of vomiting up acid in the morning. This does not occur daily. She is taking pantoprazole 40 mg every morning. It does not seem to help. This is not happen at other times during the day. Other notes: had appt today with Onco had to stop chemo for a short time d/t side effects however this has been restarted was also started on clonidine by Psych - however ended up w/ liver enzyme elevation. She is now off of this [facility], [facility] Medical History (Updated 02/19/24 @ 13:19 by Rachelle Billings, [facility]-) Back pain Tremor Imbalance Incontinence Memory loss Schizoaffective disorder Anxiety and depression Genital herpes Acid reflux IBS (irritable bowel syndrome) Cancer Surgical History History of creation of ostomy Cancer determined by lung biopsy Family History Father Substance use disorder High blood pressure Alcoholism in family Mother Substance use disorder Mental health disorder Alcoholism in family Social History Housing: House Alcohol intake: never Patient Tobacco Use Status: Never used Tobacco e-Cigarette/Vaping Use: Never Used Second Hand Smoke Exposure: No service: No Current occupational status: disabled Cognitive needs: No Hearing needs: No Vision needs: Yes (reading glasses) Questionnaire Thrive Questionnaire Date Thrive assessed: 11/16/23 CLINTON-7 AMB Questionnaire CLINTON-7 Date CLINTON - 7 assessed: 11/16/23 Source: Developed by Drs. Garland Duron, Kristy Rincon, Christiano Terry and colleagues, with an educational doug from [employer] Physical exam (Primary Care) Tobacco/Smoking Status: Tobacco use Status Tobacco use date assessed 11/16/23 12/14/23 15:44 Patient Tobacco Use Status Never used Tobacco 12/14/23 15:44 e-Cigarette/Vaping Use Never Used 12/14/23 15:44 Thrive Assessment: Date of Thrive Assessment Date Thrive assessed 11/16/23 12/14/23 15:44 Const Other: awake alert pleasant accompanied by Mom Nares patent, turbinates pink and edematous bilat pharynx clear tachycardic, regular rhythm LS CTAB Assessment and Plan Assessment & Plan (1) Seasonal allergies: Comment: Start Claritin chewable tablets 1 tablet daily until symptoms are well controlled. Then okay to discontinue and use p.r.n.. Code(s): J30.2 - Other seasonal allergic rhinitis (2) Acid reflux: Comment: Currently on pantoprazole 40 mg daily taking in the morning. All of her acid reflux symptoms are occurring 1st thing in the morning upon waking. Advised to try taking the pantoprazole at bedtime. Trial this for 2 weeks. If effective okay to continue taking at bedtime only. If not effective advised to take 2 times per day once in the morning and once at bedtime. Asked mom to give me a call and let me know how this is or is not working. Code(s): K21.9 - Gastro-esophageal reflux disease without esophagitis Qualifiers: Esophagitis presence: without esophagitis Qualified Code(s): K21.9 - Gastro-esophageal reflux disease without esophagitis Medications: New loratadine (Claritin RediTabs) 10 mg PO DAILY PRN 90 tabs 0RF allergy symptoms Patient Instructions: Return to office as scheduled, let me know how the pantoprazole is working for the acid reflux. Coding Level of Care Code Est Pt Level 4 (64034) Diagnoses Seasonal allergies J30.2 Gastroesophageal reflux disease without esophagitis K21.9 Esophagitis presence: without esophagitis
[2024-02-19 12:46] VITALS: BP 98/44; PULSE 122; O2SAT 98; BMI 24.9
== END 2024-02-19 15:17 | disposition home or self-care (01) ==
PROVIDERS: PCP Nurse Practitioner Family; Visit Provider Nurse Practitioner Family
DX: J30.2 Other seasonal allergic rhinitis (principal); K21.9 Gastro-esophageal reflux disease without esophagitis
CPT/HCPCS: 99214

== ENCOUNTER 2024-05-29 13:51 | Outpatient (AMB) | payer OTHER, SELFPAY ==
--- NOTE | 2024-05-29 13:55 | A.OFFVIS_ITS ---
Intake Visit Reasons: 3m f/u urinary retention/PVR Intake Note: Patient is present for 3M/URINARY RETENTION Urology Medication:NONE Antibiotic Allergy:PENICILLIN Blood Thinner:NONE TODAY'S PVR:0ML'S Analysis Engineer Required: No Allergies bupropion [From Wellbutrin] Allergy (Intermediate, Verified 05/29/24 13:57) Unknown paroxetine [From Paxil] Allergy (Intermediate, Verified 05/29/24 13:57) Seizure Penicillins Allergy (Intermediate, Verified 05/29/24 13:57) Hives Medication List - Last Reconciled 05/29/24 by Deon Miranda MD acetaminophen ER 1,300 mg (2 x 650 mg) PO Q12H 30 days albuterol sulfate 90 mcg/actuation 2 puffs inhalation Q6H PRN ascorbate calcium (vitamin C) 500 mg PO DAILY clozapine 400 mg PO BEDTIME diaper,brief,adult,disposable (Briefs, Adult-Extra Large) As directed, Frontal Tape Briefs - Diaper With Tabs docusate sodium 100 mg PO BID ferrous fumarate-vitamin C 200 mg (65 mg iron)-25 mg 1 tab PO DAILY ferrous gluconate 225 mg PO DAILY lidocaine-prilocaine 2.5-2.5 % Apply 2.5 g (1/2 of the 5 g tube) over 20 to 25 cm2 of skin surface area) for at least 1 hour prior to procedure loratadine (Claritin) 10 mg PO DAILY PRN lorazepam mg PO mirabegron ER (Myrbetriq) 25 mg PO DAILY ondansetron 4 mg PO Q8H PRN 30 days pantoprazole 40 mg PO DAILY polyethylene glycol 3350 (Miralax) 17 grams PO DAILY prazosin 6 mg PO BEDTIME simethicone (Gas Relief (simethicone)) 125 mg PO QID PRN 30 days therapeutic multivitamin 1 tab PO DAILY valacyclovir 1,000 mg PO DAILY HPI Comments Details: 05/29/24--Maria D is a 28-year-old female with history of schizophrenia diagnosed with metastatic rectal cancer. The patient is here with her Mother. The patient was initially evaluated due to urinary retention in November 2023, she has been voiding well since the Camejo was removed. She presents today complaining of episodes of urinary incontinence. Urinalysis is unremarkable. Currently is voiding and emptying adequately. I will trial Myrbetriq 25 mg daily. Will continue to monitor voiding, Review of chart: 01/18/2024--Maria D is a 28-year-old female who was initially evaluated on 12/17/2023 for urinary retention, she presented with a Camejo in place and had successful voiding trial. She is here with her mother end-stage she has been urinating without any difficulty. Urinalysis no signs of infection. Bladder scan PVR 106 mL, acceptable. Patient is a call for any urinary symptoms. 12/17/2023--Maria D is a 27-year-old female with history of schizophrenia diagnosed with metastatic rectal cancer. She is here for evaluation due to urinary retention she has a Camejo in place. The patient presents with her mom who gives part of the history. She states that after the surgery for colostomy placement her daughter was on a lot of pain medication including morphine which she feels contributed to the bladder problem. She is currently only on Tylenol 650 mg twice a day p.r.n. she states that she has also completed radiation. Voiding trial today was successful. Follow up in one month. [facility] Medical History Back pain Tremor Imbalance Incontinence Memory loss Schizoaffective disorder Anxiety and depression Genital herpes Acid reflux IBS (irritable bowel syndrome) Cancer Surgical History History of creation of ostomy Cancer determined by lung biopsy Family History Father Substance use disorder High blood pressure Alcoholism in family Mother Substance use disorder Mental health disorder Alcoholism in family Social History Housing: House Alcohol intake: never Patient Tobacco Use Status: Never used Tobacco e-Cigarette/Vaping Use: Never Used Second Hand Smoke Exposure: No service: No Current occupational status: disabled Cognitive needs: No Hearing needs: No Vision needs: Yes (reading glasses) Review of Systems Const All systems reviewed & are unremarkable except as noted in HPI and below Reports no additional complaints Eyes Reports no additional complaints ENT Reports no additional complaints Card Reports no additional complaints Resp Reports no additional complaints GI Reports no additional complaints Reports as per HPI Musc Reports no additional complaints Skin/Breast Reports system reviewed and no additional complaints, except as documented Neuro Reports no additional complaints Psych Reports no additional complaints Endo Reports no additional complaints Isaias/Lymph Reports no additional complaints Aller/Immun Reports no additional complaints Office Procedures Post Void Residual Post Residual Void Post Void Residual (PVR): 0 [id number] Void Residual by ultrasound Results AMB Urinalysis, Automated UA Leukoctes 70 [place]rington/uL Last Edit by ALIA Green on 05/29/24 14:11 UA Nitrite Negative Last Edit by Vinita Cooper [facility] on 05/29/24 14:11 UA Urobilinogen 0.2 mg/dL Last Edit by Vinita Cooper [facility] on 05/29/24 14:1 1 UA Protein 0 mg/dL Last Edit by Vinita Cooper [facility] on 05/29/24 14:11 UA pH 6.0 Last Edit by Vinita Cooper [facility] on 05/29/24 14:11 UA Blood 0 Kem/uL Last Edit by Vinita Cooper [facility] on 05/29/24 14:11 UA Specific Anderson 1.015 Last Edit by Vinita Cooper [facility] on 05/29/24 14: 11 UA Ketone Negative Last Edit by Vinita Cooper [facility] on 05/29/24 14:11 UA Bilirubin 0 mg/dL Last Edit by Vinita Cooper [facility] on 05/29/24 14:11 UA Glucose 0 mg/dL Last Edit by Vinita Cooper [facility] on 05/29/24 14:11 Results Reviewed Results Reviewed: Laboratory Last Values Urine pH (Auto) 6.0 05/29/24 14:10 Specific Anderson (Auto) 1.015 05/29/24 14:10 Urine Protein (Auto) 0 mg/dL 05/29/24 14:10 Glucose (UA)(Auto) 0 mg/dL 05/29/24 14:10 Urine Ketones (Auto) Negative 05/29/24 14:10 Urine Blood (Auto) 0 Kem/uL 05/29/24 14:10 Urine Nitrite (Auto) Negative 05/29/24 14:10 Urine Bilirubin (Auto) 0 mg/dL 05/29/24 14:10 Urine Urobilinogen (Auto) 0.2 mg/dL 05/29/24 14:10 Leukocyte Esterase (Auto) 70 Barrington/uL 05/29/24 14:10 Assessment & Plan Assessment & Plan (1) Presence of sigmoid colostomy: Comment: diverting loop colostomy Code(s): Z93.3 - Colostomy status Category: Medical (2) Schizophrenia: Comment: lives in [facility]; managed by Psychiatry Code(s): F20.9 - Schizophrenia, unspecified Category: Medical Qualifiers: Schizophrenia type: paranoid schizophrenia Qualified Code(s): F20.0 - Paranoid schizophrenia (3) Rectal adenocarcinoma metastatic to lung: Code(s): C20 - Malignant neoplasm of rectum; C78.00 - Secondary malignant neoplasm of unspecified lung Category: Medical Plan Rectal cancer. The patient had episodes of urinary incontinence. Currently is voiding and emptying adequately. Will trial Myrbetriq 25 mg daily. continue to monitor voiding, patient call for any urinary symptoms for worsening symptoms Orders: Orders AMB Urinalysis Automated 05/29/24 Z13.9 - Encounter for screening, unspecified Medications: New mirabegron ER (Myrbetriq) 25 mg PO DAILY 30 tabs 4RF urinary incontinence Patient Instructions: The patient had an opportunity to ask questions regarding treatment plan. The patient expressed understanding and agreement with the above treatment plan. The patient is aware they should contact our office by phone for worsening of their current condition or the appearance of new symptoms. Compliance is encouraged with any medications and followup testing that is ordered. It is a privilege to be allowed the opportunity to participate in the urologic care of your patient. If you have any questions or concerns regarding treatment for the above conditions please do not hesitate to contact me. The office telephone contact is [phone]. This note is constructed in part using voice recognition software. While every effort has been made to ensure accuracy adolescent medicine specialist errors may have been included. Yours sincerely, Deon Miranda MD Coding Level of Care Code Est Pt Level 4 (50965) Diagnoses Presence of sigmoid colostomy Z93.3 Paranoid schizophrenia F20.0 Schizophrenia type: paranoid schizophrenia Rectal adenocarcinoma metastatic to lung C20; C78.00 CPT Codes Post Residual Void - PVR CPT Code: 41436-[id number] Void Residual by ultrasound ([id number])
== END 2024-05-29 14:34 | disposition home or self-care (01) ==
PROVIDERS: PCP Nurse Practitioner Family; Visit Provider Urology
DX: Z93.3 Colostomy status (principal); F20.0 Paranoid schizophrenia; C20 Malignant neoplasm of rectum; C78.00 Secondary malignant neoplasm of unspecified lung
CPT/HCPCS: 99214

== ENCOUNTER → 2024-05-29 13:51 | Outpatient (BNVA) | payer OTHER, SELFPAY | PROVIDERS: PCP Nurse Practitioner Family; Visit Provider Urology | DX: C20 Malignant neoplasm of rectum (principal); C78.00 Secondary malignant neoplasm of unspecified lung; F20.0 Paranoid schizophrenia; Z93.3 Colostomy status | CPT/HCPCS: 51798; 81003; 99212 ==

== ENCOUNTER 2024-11-24 12:02 | Outpatient (REF) | payer OTHER, SELFPAY ==
--- OUTSIDE RECORDS SUMMARY | 2024-11-25 14:43 | XMS_ITS | Encounter Summary ---
Author Organization [facility] Address [address] [place] [address] Care Team Providers Care Exterior Interior Specialist Name Role Phone Rachelle Billings Primary Care Provider Encounter Details Date Type Department Care Team (Late st Contact Info) Description 11/11/2024 Telephone [facility] Hematology Oncology [address] [place] [address] Sai Abad MD [address] [place] [address] Social History Tobacco Use Types Packs/Day Years Used Date Smoking Tobacco: Never Alcohol Use Standard Drinks/Week Comments No 0 (1 standard drink = 0.6 oz pur e alcohol) Comments No Sex and Gender Information Value Date Recorded Sex Assigned at Female 10/17/2024 11:53 AM EST Legal Sex Female 2:06 AM EST Gender Identity Female 10/17/2024 11:53 AM EST Sexual Orientation Straight 10/17/2024 11 :53 AM EST documented as of this encounter Progress Notes * Ivone Avila - 11/11/2024 2:50 PM EST Spoke with Domenica to reschedule Maria D's appointment from 11/26/24 to 12/04/24. Domenica reports some behavioral issues again. Reports of agitation, easily triggered by certain things. Patient is scheduled for an MRI of her knee tomorrow. Domenica is in strong hopes to get her here for it, but states they maybe able to get just the normal image and not the image with dye as Maria D has a big issue with needle s. documented in this encounter Plan of Treatment Upcoming Encounters Date Type Department Care Team (Late st Contact Info) Description 12/03/2024 10:45 AM EST Office Visit [facility] Hematology Oncology [address] [place] [address] Sai Abad MD [address] [place] [address] documented as of this encounter Visit Diagnoses Not on filedocumented in this encounter Care Teams Exterior Interior Specialist Relationship Specialty Start Date End Date Rachelle Billings FNP [address] [place] [address] [place] [id number] PCP - General 12/24/23 documented as of this encounter
--- OUTSIDE RECORDS SUMMARY | 2024-11-25 14:43 | XMS_ITS | Encounter Summary ---
Author Organization [facility] Address [address] [place] [address] Care Team Providers Care Steel Die Printer Name Role Phone Rachelle Billings Primary Care Provider Reason for Visit * Reason Onset Date Comments Cough 11/20/2024 Encounter Details Date Type Department Care Team (Late st Contact Info) Description 11/20/2024 Telephone [facility] Hematology Oncology [address] [place] [address] Sai Abad MD [address] [place] [address] Cough Social History Tobacco Use Types Packs/Day Years [...] AM EST documented as of this encounter Ordered Prescriptions Prescription Sig Dispense Quantity Refills Last Filled Start Date End Date azithromycin (ZITHROMAX) 250 mg tablet Take 2 tablets (500 mg total) by mouth 1 (one) time each day for 1 day, THEN 1 tablet (250 mg total) 1 (one) time each day for 4 days. 6 tablet 11/20/2024 documented in this encounter Progress Notes * Zara Encinas RN - 11/20/2024 3:51 PM EST S/w Domenica - Reviewed provider response. Reports pt is now eating, drinking fluids, and expelling white /yellowish mucous. * ANATOLY Hartmann - 11/20/2024 3:40 PM EST Z-Blair sent in. If no improvement within the next 48 to 72 hours, she should seek medical care for further evaluation and management, or sooner if symptoms worsen. Thanks! * Shannan Serrato - 11/20/2024 3:05 PM EST Domenica mom calling Kaite still sick No fever Finally coughing up phlegm Mom on Zpack for same thing can maria d get antibiotics to clear her up Taking cough med can she take sooner than 8 hours Inhaler maria d does not understand how to take Mom has been giving her updraft treatments seems to be working Pt can not make Ct scan serge to being very sick Hard for pt to leave house Please call Domenica with what to do thank you documented in this encounter Plan of Treatment Upcoming Encounters Date Type Department Care Team (Late st Contact Info) Description 12/03/2024 10:45 AM EST Office Visit [facility] Hematology Oncology [address] [place] [address] Sai Abad MD [address] [place] [address] documented as of this encounter Visit Diagnoses Not on filedocumented in this encounter Care Teams Steel Die Printer Relationship Specialty Start Date End Date Rachelle Billings FNP [address] [place] [address] [place] [phone] PCP - General 12/24/23 documented as of this encounter
--- OUTSIDE RECORDS SUMMARY | 2024-11-25 14:43 | XMS_ITS | Encounter Summary ---
Author Organization [facility] Address [address] [place] [address] Care Team Providers Care Physician Scientist Name Role Phone Rachelle Billings Primary Care Provider Encounter Details Date Type Department Care Team (Late st Contact Info) Description 07/24/2024 10:21 AM EDT Hospital Encounter TH HISTORIC ENCOUNTERS EASTERN CONVERSION ONLY Sai Abad MD [address] [place] [address] Social History Tobacco Use Types [...] AM EST documented as of this encounter Last Filed Vital Signs Vital Sign Reading Time Taken Comments Blood Pressure 120/70 07/24/2024 10:26 AM EDT Pulse 115 07/24/2024 10:26 AM EDT Temperature - - Respiratory Rate - - Oxygen Saturation - - Inhaled Oxygen Concentration - - Weight 72.5 kg (159 lb 12.8 oz) 024 10:26 AM EDT Height 170.2 cm (5' 7 ) 07/24/2024 10:2 6 AM EDT Body Mass Index 25.03 07/24/2024 10:26 AM EDT documented in this encounter Progress Notes * Sai Abad MD - 07/24/2024 10:15 AM EDT CHIEF COMPLAINT: No chief complaint on file. IDENTIFIER:Maria D Dominguez is a 28 y.o. female. HPI:Metastatic rectal carcinoma, K-[place] G12 D,p??MMR, HER2 negative 28-year-old undergoing evaluation for metastatic carcinoma of the rectum noted to have multiple pulmonary nodules. ??Patient has known cognitive delays relies on her biologic father who is healthcareproxy and stepped mother for historical details. In the office today patient is in no acute distress somewhat nervous Patient developed lower abdomen discomfort over the l last several weeks. ??She had also experienced episodic difficulties of dizziness. ??In August 2023 she had been seen in the emergency room noted to have a hemoglobin of 6.2. ??She underwent transfusional therapy. ??November 2023 patient seen [facility] ER progressive difficulties of abdominal discomfort. ??At that time hemoglobin was 8.2 patient had UA with heavy bacteria a CT scan was performed demonstrating distal rectal mass 10.2 x6.0 x 8.8 cm with stricture and asymmetry within the rectal wall. ??There was extension to the presacral space perirectal mesenteric adenopathy was noted. ??Further radiographic assessment demonstrated evidence of pulmonary nodularity within the lower lung hollins. ??CEA at that time was 233. On 11/02/2023 patient underwent laparoscopic diverting loop colostomy with biopsy of the rectal mass.??There was noted to be bulky adhesion to the posterior uterus and right adnexa and posterior wall of the vagina no evidence of diffuse carcinomatosis was noted. ??Pathology as noted above was considered grade 2 adenocarcinoma with foci of venous invasion. On 11/03/2023 CT of the chest demonstrated multiple pulmonary nodules right upper lobe lesion 2.8 x 6.1 x 3.9 cm involving the right hilum largest single nodule upper left pulmonary hilum 2.7 x 2.6 x 2.7 cm on 11/07/2023 1 biopsy left lower lobe pulmonary nodule revealed adenocarcinoma consistent with colorectal origin. ??Trusite??Tumor 15??NGS??panel demonstrated findings as noted above (VA F 37.8%). MRI of the pelvis was obtained there was evidence of direct invasion of the posterior cervix and coccygeal segments and near circumferential mesorectal fascia. On 11/10/[address] scanning was obtained demonstrating mild hydro utero nephrosis in the setting of a distended urinary bladder patient does have chronic difficulties with urinary retention and ongoing genital herpes. ??She ultimately required placement of indwelling Camejo catheter for relief. On 12/05/2023 patient did receive a short course of radiation x 5 fractions details of which to be obtained. Patient was seen in consultation by Dr. Eligio Davis??gastrointestinal cancer at [facility]. Recommendations as outlined below. Patient does have genitourinary discomfort and cramping sensation around menses Laboratory data demonstrates CEA of 208. Significant emotional difficulty with attempt of Port-A-Cath placement. Improvement in pain syndrome with prior radiation Tolerating therapy quite well. ??CEA remains elevated at 314. ??Hemoglobin stable at 8.3. ??Patient??does have elevation of SGOT SGPT. ??295 and 283 respectively. ??Patient did discontinue clonidine.?Transaminases now normalized Overall patient doing reasonably well no acute difficulties of pain syndrome. ??Appetite energy stable. Has had improvement in transaminases of quantity. ??Continues close follow-up with psychiatry. Need to coordinate phlebotomy since this is an emotionally stressful procedure for Maria D Overall doing reasonably well tolerating therapy no acute complaints Significant improvement in CEA ??at 244 Patient doing reasonably well no ongoing acute difficulties of pain appetite is intact. She has hadrecent CT scan which demonstrated masses within the right and left upper lobe. Also distal upper lobe bronchi occluded. Notably there is no respiratory symptoms. There were additional bilateral nodules within the lungs suspicious for metastasis. Posterior pelvis has large mass. There is an extensive disease in the region of this rectum. Biopsy lateral hydronephrosis noted. The studies were reviewed some length with patient stepmother. Prior laboratory data from 06/19/2024 demonstrates creatinine of 0.87. CEA 197 previously had been 244 ?? No acute difficulties of pain at this time tolerating therapy. As previously noted had declined systemic therapy other than capecitabine. Appetite energy all quite stable. Labs from 07/14/2024 WBC 11.5 hemoglobin 9.8 platelet count 414,000 fattening 0.76 alk phos 236 [id number] PAST MEDICAL HISTORY: History reviewed. No pertinent past medical history. History reviewed. No pertinent surgical history. SOCIAL HISTORY: Social History Tobacco Use ??? Smoking status: Not on file ??? Smokeless tobacco: Not on file Substance Use Topics ??? Alcohol use: Not on file FAMILY HISTORY: History reviewed. No pertinent family history. No family status information on file. Current Outpatient Medications: ??? acetaminophen (Tylenol 8 Hour Arthritis Pain) 650 MG CR tablet, Take 1 tablet (650 mg total) bymouth every 8 (eight) hours as needed for pain., Disp: , Rfl: ??? ascorbic acid (VITAMIN C) 500 MG tablet, Take 1 tablet (500 mg total) by mouth daily., Disp: , Rfl: ??? cloZAPine (CLOZARIL) 200 MG tablet, Take 1 tablet (200 mg total) by mouth 2 (two) times a day.,Disp: , Rfl: ??? docusate sodium (COLACE) 100 MG capsule, Take 1 capsule (100 mg total) by mouth 2 (two) times aday., Disp: , Rfl: ??? ferrous sulfate 325 (65 FE) MG tablet, Take 1 tablet (325 mg total) by mouth every morning withbreakfast., Disp: , Rfl: ??? LORazepam (ATIVAN) 0.5 MG tablet, Take 1 tablet (0.5 mg total) by mouth 2 (two) times a day., Disp: , Rfl: ??? Multiple Vitamins-Minerals (Thera-M) TABS, Take 400 mcg by mouth daily., Disp: , Rfl: ??? ondansetron (ZOFRAN-ODT) 4 MG disintegrating tablet, Take 1 tablet (4 mg total) by mouth every 8 (eight) hours., Disp: , Rfl: ??? pantoprazole (PROTONIX) 40 MG tablet, Take 1 tablet (40 mg total) by mouth every morning on an empty stomach., Disp: , Rfl: ??? prochlorperazine (COMPAZINE) 5 MG tablet, Take 1 tablet (5 mg total) by mouth every 6 (six) hours as needed for nausea., Disp: , Rfl: ??? Simethicone 125 MG TABS, Take 125 mg by mouth 4 (four) times a day., Disp: , Rfl: ??? valACYclovir (VALTREX) 1000 MG tablet, Take 1 tablet (1,000 mg total) by mouth 2 (two) times a day., Disp: , Rfl: ??? cloNIDine (CATAPRES) 0.2 MG tablet, Take 1 tablet (0.2 mg total) by mouth 2 (two) times a day.,Disp: , Rfl: ??? Diclofenac Sodium 1 % CREA, Apply 4 g topically 2 (two) times a day as needed., Disp: 50 g, Rfl: 0 ? ? Elastic Bandages & Supports (Knee Brace) MISC, Apply to right knee as needed for pain and swelling, Disp: 1 each, Rfl: 0 ??? HYDROmorphone (DILAUDID) 4 MG tablet, Take 1 tablet (4 mg total) by mouth every 6 (six) hours as needed for pain., Disp: , Rfl: ??? Morphine Sulfate ER (MS CONTIN) 15 MG TBCR, Take 1 tablet (15 mg total) by mouth every 12 (twelve) hours., Disp: , Rfl: ??? oxyCODONE (ROXICODONE) 5 MG immediate release tablet, Take 1 tablet (5 mg total) by mouth every4 (four) hours as needed for pain., Disp: , Rfl: ??? polyethylene glycol (MIRALAX) 17 g packet, Take 17 g by mouth daily., Disp: , Rfl: ??? prazosin (MINIPRESS) 2 MG capsule, Take 1 capsule (2 mg total) by mouth every night at bedtime.(Patient not taking: Reported on 07/24/2024), Disp: , Rfl: You are allergic to the following Date Reviewed: 07/26/2024 Allergen Reactions Bupropion Not Noted ANGER Haloperidol Not Noted ANGER Paroxetine Rash Penicillins Rash ROS: GENERAL: No malaise, significant weight loss or fever NECK: No lumps, goiter, pain or significant neck swelling RESPIRATORY: No cough, wheezing or shortness of breath CARDIOVASCULAR: No chest pain, leg swelling or palpitations GI: No abdominal discomfort, blood in stools or black stools MUSCULOSKELETAL: No joint pain or swelling, back pain, or muscle pain. HEMATOLOGY/LYMPHOLOGY No prolonged bleeding, easy bruisability or swollen nodes Other Systems review is non contributory PHYSICAL EXAM: BP 120/70 Pulse 115 Temp 97.9 ??F (36.6 ??C) Ht 5' 7 (1.702 m) Wt 72.5 kg (159 lb 12.8 oz) SpO2 95% BMI 25.03 kg/m?? No data recorded APPEARANCE: Alert and in no acute distress EYES: PERRL, conjunctiva pink and sclera are Normal without icterus NECK: Neck supple, no adenopathy HEART: RRR with normal S1 and S2, no murmurs, no gallops, no JVD appreciated LUNG: clear to auscultation bilaterally LYMPH NODES: No palpable superficial adenopathy ABDOMEN: Left-sided colostomy mild degree of discomfort around ostomy site EXTREMITIES: Extremities warm and well perfused without clubbing, cyanosis, rash or edema NEURO: Oriented X 3, no focal weakness; sensation is normal IMPRESSION: SNOMED CT(R) 1. Malignant neoplasm metastatic to lung, unspecified laterality (HCC) METASTATIC MALIGNANT NEOPLASM TO LUNG PLAN: Patient and family expressed, notably healthcare proxy and stepmother Domenica expressed grave concerns regarding any transition in treatment at this time. They do not wish to consider the prospect of port placement or intravenous therapy. Requesting increase in dosing of Xeloda. Will now go to 1000 mg p.o. twice daily. Thus far patient has tolerated therapy. There is clear understanding regarding the gravity of current condition and likely conversation with stepmother. She is very devoted attentive to Maria D. Will follow-up check on CT of the chest and CEA to evaluate for any disease progression Clinically Maria D is doing remarkably well despite lab findings Have discussed the issue regarding CODE STATUS with Sai Garcia MD documented in this encounter Plan of Treatment Upcoming Encounters Date Type Department Care Team (Late st Contact Info) Description 12/03/2024 10:45 AM EST Office Visit [facility] Hematology Oncology [address] [place] [address] Sai Abad MD [address] [place] [address] documented as of this encounter Visit Diagnoses Not on filedocumented in this encounter Care Teams Physician Scientist Relationship Specialty Start Date End Date Rachelle Billings FNP [address] [place] [address] PCP - General 12/24/23 documented as of this encounter
--- OUTSIDE RECORDS SUMMARY | 2024-11-25 14:43 | XMS_ITS | Encounter Summary ---
Author Organization [facility] Address [address] [place] [address] Care Team Providers Care Generation Engineer Name Role Phone Rachelle Billings Primary Care Provider Encounter Details Date Type Department Care Team (Late st Contact Info) Description 07/02/2024 10:19 AM EDT Hospital Encounter TH HISTORIC ENCOUNTERS EASTERN CONVERSION ONLY Sai Abad MD [address] [place] [address] Social History Tobacco Use Types [...] Sign Reading Time Taken Comments Blood Pressure 108/65 07/02/2024 10:23 AM EDT Pulse 114 07/02/2024 10:23 AM EDT Temperature - - Respiratory Rate - - Oxygen Saturation - - Inhaled Oxygen Concentration - - Weight 71.7 kg (158 lb) 07/02/2024 10:23 AM EDT Height 170.2 cm (5' 7 ) 07/02/2024 10:23 AM EDT Body Mass Index 24.75 07/02/2024 10:23 AM EDT documented in this encounter Progress Notes * Sai Abad MD - 07/02/2024 10:15 AM EDT CHIEF COMPLAINT: No chief complaint on file. IDENTIFIER:Maria D Dominguez is a 28 y.o. female. HPI:Metastatic rectal carcinoma, K-[place] G12 D,p??MMR, HER2 negative 27-year-old undergoing evaluation for metastatic carcinoma of the [...] underwent transfusional therapy. ??November 2023 patient seen [facility] ER progressive difficulties of abdominal discomfort. ??At [...] consultation by Dr. Eligio Davis??gastrointestinal cancer at [facility]. Recommendations as outlined below. Patient does have [...] no acute complaints Significant improvement in CEA at 244 Patient doing reasonably well no ongoing [...] 0.87. CEA 197 previously had been 244 PAST MEDICAL HISTORY: History reviewed. No pertinent [...] needed for pain., Disp: , Rfl: ??? cloNIDine (CATAPRES) 0.2 MG tablet, Take 1 tablet (0.2 mg total) by mouth 2 (two) times a day.,Disp: , Rfl: ??? cloZAPine (CLOZARIL) 200 MG [...] every morning withbreakfast., Disp: , Rfl: ??? HYDROmorphone (DILAUDID) 4 MG tablet, Take 1 tablet (4 mg total) by mouth every 6 (six) hours as needed for pain., Disp: , Rfl: ??? LORazepam (ATIVAN) 0.5 MG tablet, Take 1 tablet (0.5 mg total) by mouth 2 (two) times a day., Disp: , Rfl: ??? Morphine Sulfate ER (MS CONTIN) 15 MG TBCR, Take 1 tablet (15 mg total) by mouth every 12 (twelve) hours., Disp: , Rfl: ??? Multiple Vitamins-Minerals (Thera-M) TABS, Take 400 mcg by mouth daily., Disp: , Rfl: ??? ondansetron (ZOFRAN-ODT) 4 MG disintegrating tablet, Take 1 tablet (4 mg total) by mouth every 8 (eight) hours., Disp: , Rfl: ??? oxyCODONE (ROXICODONE) 5 MG immediate release tablet, Take 1 tablet (5 mg total) by mouth every4 (four) hours as needed for pain., Disp: , Rfl: ??? pantoprazole (PROTONIX) 40 MG tablet, Take 1 tablet (40 mg total) by mouth every morning on an empty stomach., Disp: , Rfl: ??? polyethylene glycol (MIRALAX) 17 g packet, Take 17 g by mouth daily., Disp: , Rfl: ??? prazosin (MINIPRESS) 2 MG capsule, Take 1 capsule (2 mg total) by mouth every night at bedtime., Disp: , Rfl: ??? prochlorperazine (COMPAZINE) 5 [...] (two) times a day., Disp: , Rfl: You are allergic to the following Date Reviewed: 07/02/2024 Allergen Reactions Bupropion Not Noted ANGER Haloperidol [...] review is non contributory PHYSICAL EXAM: BP 108/65 Pulse 114 Temp 98.4 ??F (36.9 ??C) Ht 5' 7 (1.702 m) Wt 71.7 kg (158 lb) SpO2 100% BMI 24.75 kg/m?? Verbal Pain Score: 0 (07/02/2024 10:23 AM) APPEARANCE: Alert and in no acute distress EYES: PERRL, conjunctiva pink and sclera are Normal without icterus NECK: Neck supple, no adenopathy HEART: RRR with normal S1 and S2, no murmurs, no gallops, no JVD appreciated LUNG: clear to auscultation bilaterally LYMPH NODES: No palpable superficial adenopathy ABDOMEN: No tenderness colostomy on left EXTREMITIES: Extremities warm and well perfused without clubbing, cyanosis, rash or edema NEURO: Oriented X 3, no focal weakness; sensation is normal IMPRESSION: SNOMED CT(R) 1. Malignant neoplasm metastatic to lung, unspecified laterality (HCC) METASTATIC MALIGNANT NEOPLASM TO LUNG PLAN: Laboratory data CT scan reviewed. Patient generally doing well tolerated escalating dose of capecitabine to 1500 twice daily. Reviewed CAT scan upper lobe collapse right left. Also extensive pelvic disease. Discussed at some length with the patient's stepmother. Uncertain whether they would consider transition to further therapy. Will be meeting with stepmother and patient's father who is legal guardian. Today patient is tolerating therapy remarkably well her spirits are good. No ongoing difficulties of acute pain. Some improvement in CEA [id number] Sai Abad MD documented in this encounter Plan of Treatment Upcoming Encounters Date Type Department Care Team (Late st Contact Info) Description 12/03/2024 10:45 AM EST Office Visit [facility] Hematology Oncology [address] [place] [phone] Sai Abad MD [address] [place] [phone] documented as of this encounter Visit Diagnoses Not on filedocumented in this encounter Care Teams Generation Engineer Relationship Specialty Start Date End Date Rachelle Billings FNP [address] [place] [address] [place] [address] PCP - General 12/24/23 documented as of this encounter
--- OUTSIDE RECORDS SUMMARY | 2024-11-25 14:43 | XMS_ITS | Encounter Summary ---
Author Organization [facility] Address [address] [place] [address] Care Team Providers Care Special Events Fundraiser Name Role Phone Rachelle Billings Primary Care Provider Encounter Details Date Type Department Care Team (Late st Contact Info) Description 07/10/2024 11:46 AM EDT Hospital Encounter TH HISTORIC ENCOUNTERS EASTERN CONVERSION ONLY Nohemi Ramos PA [address] [place] [address] Social History Tobacco Use Types Packs/Day Years [...] Sign Reading Time Taken Comments Blood Pressure 118/61 07/10/2024 11:50 AM EDT Pulse 111 07/10/2024 11:50 AM EDT Temperature - - Respiratory Rate - - Oxygen Saturation - - Inhaled Oxygen Concentration - - Weight 71.7 kg (158 lb) 07/10/2024 11:50 AM EDT Height 170.2 cm (5' 7 ) 07/10/2024 11:50 AM EDT Body Mass Index 24.75 07/10/2024 11:50 AM EDT documented in this encounter Plan of Treatment Upcoming Encounters Date Type Department Care Team (Late st Contact Info) Description 12/03/2024 10:45 AM EST Office Visit [facility] Hematology Oncology [address] [place] [address] Sai Abad MD [address] [place] [address] documented as of this encounter Visit Diagnoses Not on filedocumented in this encounter Care Teams Special Events Fundraiser Relationship Specialty Start Date End Date Rachelle Billings FNP [address] [place] [address] [place] [phone] PCP - General 12/24/23 documented as of this encounter
--- OUTSIDE RECORDS SUMMARY | 2024-11-25 14:43 | XMS_ITS | Encounter Summary ---
Author Organization [facility] Address [address] [place] [address] Care Team Providers Care Relaster Name Role Phone Rachelle Billings Primary Care Provider Reason for Referral * Imaging (Routine) - Canceled Specialty Diagnoses / Procedures Referred By Richard ballesteros Referred To Contact Radiology Diagnoses Multiple lung nodules Malignant neoplasm of colon, unspecified part of colon (CMS/HCC) Procedures CT Chest/Abdomen/Pelvis wo Contrast Sai Leary MD [address] [place] [phone] Phone: tel: fax: [address] [phone] Phone: tel: Referral ID Status Reason Start Date Expiration Date V isits Requested Visits Authorized [id number] Canceled 11/10/2024 11/10/2025 1 1 Encounter Details Date Type Department Care Team (Late st Contact Info) Description 11/04/2024 Telephone [facility] Hematology Oncology [address] [place] [phone] Sai Leary MD [address] [place] [address] Social History Tobacco Use Types [...] Refills Last Filled Start Date End Date albuterol HFA (PROAIR HFA ; PROVENTIL HFA ; VENTOLIN HFA) 90 mcg/actuation inhalerIndications :Asthma, unspecified asthma severity, unspecified whether complicated, unspecified whether persistent,Multipl e lung nodules Inhale 2 puffs by mouth every 6 (six) hours if needed for shortness of breath (cough). 6.7 g 1 11/04/2024 6 benzonatate (TESSALON) 100 mg capsuleIndications :Asthma, unspecified asthma severity, unspecified whether complicated, unspecified whether persistent,Multipl e lung nodules Take 1 capsule (100 mg total) by mouth every 8 (eight) hours for 10 days. Do not crush or chew. 30 each 11/04/2024 documented in this encounter Progress Notes * Nela Sawant RN - 11/10/2024 11:40 AM ESTAddended by: NELA SAWANT on: 11/10/2024 11:40 AM Modules accepted: Orders * Nela Sawant RN - 11/04/2024 11:36 AM EST I spoke with Maria D's step mom, Domenica, and updated her on the plan. She will pickling drum operator the 2 scripts for Maria D this afternoon. * Nela Sawant RN - 11/04/2024 11:23 AM ESTAddended by: NELA SAWANT on: 11/04/2024 11:23 AM Modules accepted: Orders * Ivone Avila - 11/04/2024 11:09 AM EST Patient's step mother Domenica is returning your call. * Nela Sawant RN - 11/04/2024 11:05 AM EST I received a call from Dr. Leary: Tessalon Perles 100 mg PO Q 8 hrs prn cough. Ventolin 90 mcg inhaler 2 puffs Q 6 hrs prn SOB, cough. Dr. Leary would like CT C/A/P with oral contrast if patient will allow. Ok to not have IV contrast. Will put patient on Dr. Leary's call back list for tomorrow. * Nela Sawant RN - 11/04/2024 10:59 AM EST Attempted to call pts step mom Domenica back [phone] back. No answer. Left a VM requesting she call the office back. * Nela Sawant RN - 11/04/2024 10:53 AM EST I have reached out to Dr. Leary to see is he is available to discuss. * Dora Corea DO - 11/04/2024 10:29 AM EST Please review w/ dr leary via message - I am unclear what prescription they are referring to * Cleo Madrid - 11/04/2024 10:12 AM EST Patient's mom Domenica asking about an updraft machine for her to be sent per previous discussion and possibly a cough medicine. Also her next xray will be on Sunday. Also wants to discuss doing the ct scan w/o contrast, less needles the better. Please call her at [phone] documented in this encounter Plan of Treatment Upcoming Encounters Date Type Department Care Team (Late st Contact Info) Description 12/03/2024 10:45 AM EST Office Visit [facility] Hematology Oncology [address] [place] [address] Sai Leary MD [address] [place] [address] Scheduled Orders Name Type Priority Associated Diagnoses Orde r Schedule CT Chest/Abdomen/Pelvis wo Contrast Imaging Routine Multiple lung nodules Malignant neoplasm of colon, unspecified part of colon (CMS/HCC) Expected: 11/17/2024, Expires: 11/10/2025 documented as of this encounter Visit Diagnoses Diagnosis Asthma, unspecified asthma severity, unspecified whether complicated, unspecified whether persistent- Primary Multiple lung nodules Other diseases of lung, not elsewhere classified Malignant neoplasm of colon, unspecified part of colon (CMS/HCC) documented in this encounter Care Teams Relaster Relationship Specialty Start Date End Date Rachelle Billings FNP [address] [place] [address] [place] [phone] PCP - General 12/24/23 documented as of this encounter
--- OUTSIDE RECORDS SUMMARY | 2024-11-25 14:43 | XMS_ITS | Clinical Summary ---
Author Organization [facility] Address [address] [place] [address] Care Team Providers Care Sales Assistant Institutional Sales Name Role Phone Rachelle Billings Primary Care Provider [phone] Allergies Active Allergy Reactions Criticality Noted Date Comments Bupropion 12/27/2023 ANGER Haloperidol 12/27/2023 ANGER Paroxetine Rash Low 12/27/2023 Penicillins Rash Low 12/27/2023 Medications Medication Sig Dispensed Refills Start Date End Date Status acetaminophen (Tylenol 8 Hour Arthritis Pain) 650 MG CR tablet Take 1 tablet (650 mg total) by mouth every 8 (eight) hours as needed for pain. 0 Active cloZAPine (CLOZARIL) 200 MG tablet Take 1 tablet (200 mg total) by mouth 2 (two) times a day. 0 Active docusate sodium (COLACE) 100 MG capsule Take 1 capsule (100 mg total) by mouth 2 (two) times a day. 0 Active LORazepam (ATIVAN) 0.5 MG tablet Take 1 tablet (0.5 mg total) by mouth 2 (two) times a day. 0 Active ondansetron (ZOFRAN-ODT) 4 MG disintegrating tablet Take 1 tablet (4 mg total) by mouth every 8 (eight) hours. 0 Active pantoprazole (PROTONIX) 40 MG tablet Take 1 tablet (40 mg total) by mouth every morning on an empty stomach. 0 Active polyethylene glycol (MIRALAX) 17 g packet Take 17 g by mouth daily. 0 Active prazosin (MINIPRESS) 2 MG capsule Take 1 capsule (2 mg total) by mouth every night at bedtime. 0 Active prochlorperazine (COMPAZINE) 5 MG tablet Take 1 tablet (5 mg total) by mouth every 6 (six) hours as needed for nausea. 0 Active Simethicone 125 MG TABS Take 125 mg by mouth 4 (four) times a day. 0 Active Multiple Vitamins-Minerals (Thera-M) TABS Take 400 mcg by mouth daily. 0 Active valACYclovir (VALTREX) 1000 MG tablet Take 1 tablet (1,000 mg total) by mouth 2 (two) times a day. 0 Active HYDROmorphone (DILAUDID) 4 MG tablet Take 1 tablet (4 mg total) by mouth every 6 (six) hours as needed for pain. 0 Active Morphine Sulfate ER (MS CONTIN) 15 MG TBCR Take 1 tablet (15 mg total) by mouth every 12 (twelve) hours. 0 Active oxyCODONE (ROXICODONE) 5 MG immediate release tablet Take 1 tablet (5 mg total) by mouth every 4 (four) hours as needed for pain. 0 Active cloNIDine (CATAPRES) 0.2 MG tablet Take 1 tablet (0.2 mg total) by mouth 2 (two) times a day. 0 Active ferrous sulfate 325 (65 FE) MG tablet Take 1 tablet (325 mg total) by mouth every morning with breakfast. 0 Active Diclofenac Sodium 1 % CREA Apply 4 g topically 2 (two) times a day as needed. 50 g 0 07/10/2024 Active Elastic Bandages & Supports (Knee Brace) MISC Apply to right knee as needed for pain and swelling 1 each 0 07/10/2024 Active ascorbic acid (VITAMIN C) 500 MG tablet Take 1 tablet (500 mg total) by mouth daily. 0 Active Active Problems No known active problems Social History Tobacco Use Types Packs/Day Years Used Date Smoking Tobacco: Never Assessed Sex and Gender Information Value Date Recorded Sex Assigned at Female 12/24/2023 8:42 AM EDT Gender Identity Not on file Sexual Orientation Not on file Job Start Date Occupation Industry Not on file Not on file Not on file Last Filed Vital Signs Vital Sign Reading Time Taken Comments Blood Pressure 120/70 07/24/2024 10:26 AM EDT Pulse 115 07/24/2024 10:26 AM EDT Temperature 36.6 ??C (97.9 ??F) 07/24/2024 1 0:26 AM EDT Respiratory Rate - - Oxygen Saturation 95% 07/24/2024 10: 26 AM EDT Inhaled Oxygen Concentration - - Weight 72.5 kg (159 lb 12.8 oz) 024 10:26 AM EDT Height 170.2 cm (5' 7 ) 07/24/2024 10:2 6 AM EDT Body Mass Index 25.03 07/24/2024 10:26 AM EDT Plan of Treatment Health Maintenance Due Date Last Done Comments Hepatitis B Vaccines (1 of 3 - 3-dose series) 1995 Hepatitis C Screening 1995 COVID-19 Vaccine (#1) 12/28/2000 Pneumococcal Vaccine (1 of 2 - PCV) 12/28/2001 Depression Screening 2007 BMI Counseling 12/28/2013 Preventative Health Evaluation 12/28/2013 DTap / Tdap / Td (1 - Tdap) 12/28/2014 Cervical Cancer Screening (P ap Smear) 12/28/2016 Influenza Vaccine (#1) 2024 RSV Ped < 20 months Aged Out No longe r eligible based on patient's age to complete this topic Care Teams Sales Assistant Institutional Sales Relationship Specialty Start Date End Date Rachelle Billings [address] [place] [address] Dr Rosales [address] [place], [place] [id number] PCP - General Family Medicine 12/24/23
--- OUTSIDE RECORDS SUMMARY | 2024-11-25 14:44 | XMS_ITS | Clinical Summary ---
Author Organization [facility] Address [address] [place] [phone] Phone Care Team Providers Care Hoop Driving Machine Operator Helper Name Role Phone Rachelle Billings Primary Care Provider Allergies Active Allergy Reactions Criticality Noted Date Comments Bupropion 02/27/2014 ANGER Haloperidol 02/27/2014 Paroxetine Rash Low 02/27/2014 Penicillins Rash Low 02/27/2014 Pseudoephedrine 02/27/2014 Medications valACYclovir (VALTREX) 500 mg tablet Take 1 tablet (500 mg total) by mouth 1 (one) time each day. 2 Active sertraline (ZOLOFT) 50 mg tablet Take 1 tablet (50 mg total) by mouth 1 (one) time each day in the morning. 1 Active diphenhydrAMINE (Banophen) 50 mg capsule TAKE 1 CAPSULE BY MOUTH every NIGHT 1 Active prazosin (MINIPRESS) 2 mg capsule Take 3 Caps by mouth at bedtime. 8 Active cloZAPine (CLOZARIL) 100 mg tablet Take 1-2 Tabs by mouth 2 times daily. 1 in the am, 2 at bedtime 8 Active diphenhydrAMINE (BENADRYL) 25 mg tablet Take 50 mg by mouth at bedtime as needed. Active ascorbic acid (VITAMIN C) 500 mg tablet Take 1 tablet (500 mg total) by mouth 1 (one) time each day. Active ferrous sulfate 325 mg (65 mg elemental iron) tablet Take 65 mg by mouth. 3 Active diclofenac sodium 3 % gelIndications:R juan Apply topically 2 (two) times a day. Apply to hands and feet twice daily 100 g 4 Active capecitabine (XELODA) 500 mg tabletIndication s:metastatic colorectal cancer Take 4 tablets (2,000 mg total) by mouth 2 (two) times a day For 14 days followed by 7 days off and repeat cycle every 21 days. Swallow tablets whole with water. Do not crush or cut. 112 tablet 5 5 Active diclofenac sodium 3 % gel Apply topically 2 (two) times a day. 100 g 2 5 Active albuterol HFA (PROAIR HFA ; PROVENTIL HFA ; VENTOLIN HFA) 90 mcg/actuation inhalerIndicatio ns:Asthma, unspecified asthma severity, unspecified whether complicated, unspecified whether persistent,Multi ple lung nodules Inhale 2 puffs by mouth every 6 (six) hours if needed for shortness of breath (cough). 6.7 g 1 5 11/04/19 26 Active azithromycin (ZITHROMAX) 250 mg tablet Take 2 tablets (500 mg total) by mouth 1 (one) time each day for 1 day, THEN 1 tablet (250 mg total) 1 (one) time each day for 4 days. 6 tablet 5 11/25/19 25 Active benzonatate (TESSALON) 100 mg capsuleIndicatio ns:Asthma, unspecified asthma severity, unspecified whether complicated, unspecified whether persistent,Multi ple lung nodules Take 1 capsule (100 mg total) by mouth every 8 (eight) hours for 10 days. Do not crush or chew. 30 each 5 11/14/19 25 Active Problems Problem Noted Date Diagnosed Date Anxiety 07/25/2024 Asthma 07/25/2024 Depression 07/25/2024 Genital herpes 07/25/2024 Migraine 07/25/2024 Schizophrenia 07/25/2024 Seizure 07/25/2024 Iron deficiency anemia 04/27/2021 Encounters Date Type Department Care Team Description 11/20/2024 Telephone [facility] Hematology Oncology [address] [place] [phone] Sai Abad MD Cough 11/11/2024 Telephone [facility] Hematology Oncology [address] [place] [phone] Sai Abad MD 11/04/2024 Telephone [facility] Hematology Oncology [address] [place] [phone] Sai Abad MD 10/22/2024 10:45 AM EST Office Visit [facility] Hematology Oncology [address] [place] [phone] Sai Abad MD Malignant neoplasm of colon, unspecified part of colon (CMS/HCC) (Primary Dx) 10/17/2024 11:55 AM EST - 10/17/2024 11:59 PM EST Hospital Encounter [facility] Xray [address] [place] [phone] Contusion of right knee, initial encounter Discharge Disposition: Home or Self Care 10/16/2024 Telephone [facility] Hematology Oncology [address] [place] [phone] Sai Abad MD Right Knee Pain 09/05/2024 [facility] Hematology Oncology [address] [place] [phone] Sai Abad MD 09/03/2024 10:00 AM EST Office Visit [facility] Hematology Oncology [address] [place] [phone] Sai Abad MD Malignant neoplasm of colon, unspecified part of colon (CMS/HCC) (Primary Dx) 08/27/2024 Telephone [facility] Hematology Oncology [address] [place] [phone] Sai Abad MD Xeloda / Specialty Pharmacy (Dose Adjustment); Derm Toxicity 08/26/2024 9:58 AM EST - 08/26/2024 11:59 PM EST Hospital Encounter [facility] CT Scan [address] [place] [phone] Secondary malignant neoplasm of unspecified lung (CMS/HCC) Discharge Disposition: Home or Self Care from Last 3 Months Immunizations Name Administration Dates Next Due Td Tetanus diptheria (Tdvax) 7yo and older 10/01 Surgical History Surgery Date Site/Laterality Comments WISDOM TOOTH EXTRACTION 2011 PROCEDURE: HISTORICAL WISDOM TEETH EXTRACTION Medical History Medical History Date Comments Asthma DX:Asthma Migraine DX:Migraine Seizure (CMS/HCC) DX:Seizure (HC C); COMMENT: followed by psych: javier wong at [facility] sees them once per month-part of the mental health aspect: sees [facility] yearly Depression DX:Depression Anxiety DX:Anxiety Bipolar affective disorder (CMS/HCC) DX:Bipolar affective disorder ([facility]) PTSD (post-traumatic stress disorder) DX:PTSD (post-traumatic stress disorder) H/O self-harm DX:H/O self-harm ; COMMENT: cutting History of suicidal ideation DX: History of suicidal ideation Genital herpes DX:Genital herpe s Schizophrenia (CMS/HCC) DX:Schiz ophrenia ([facility]) Family History Medical History Relation Name Comments Mental illness Father Other: cirosis Father Other: pancreatits Father Other: throat polyps Father Alcohol abuse Father's side 1 Mental illness Mother Alcohol abuse Mother's side 1 Diabetes Paternal Grandfather Breast cancer Paternal Grandmother Diabetes Paternal Grandmother Lung cancer Paternal Grandmother Throat cancer Uncle 1 Relation Name Status Comments Brother Alive Father Alive Father's side 1 Father's side 2 Maternal Grandfather Maternal Grandmother Alive Mother Alive Mother's side 1 Mother's side 2 Paternal Grandfather Paternal Grandmother Uncle 1 Uncle 2 Social History Tobacco Use Types Packs/Day Years Used Date Smoking Tobacco: Never Tobacco Cessation:Counseling Given: Not Answered Alcohol Use Standard Drinks/Week Comments No 0 (1 standard drink = 0.6 oz pur e alcohol) Comments No Sex and Gender Information Value Date Recorded Sex Assigned at Female 10/17/2024 11:53 AM EST Legal Sex Female 2:06 AM EST Gender Identity Female 10/17/2024 11:53 AM EST Sexual Orientation Straight 10/17/2024 11 :53 AM EST Obstetrics History Last Filed Vital Signs Vital Sign Reading Time Taken Comments Blood Pressure 117/62 10/22/2024 11:05 AM EST Pulse 124 10/22/2024 11:05 AM EST Temperature 37.4 ??C (99.4 ??F) 10/22/2024 11:[address] Respiratory Rate - - Oxygen Saturation 100% 10/22/2024 11:05 AM EST Inhaled Oxygen Concentration - - Weight 67.1 kg (148 lb) 10/22/2024 11:05 AM EST Height 170.2 cm (5' 7 ) 09/03/2024 10:14 AM EST Body Mass Index 23.18 09/03/2024 10:14 AM EST Plan of Treatment Upcoming Encounters Date Type Department Care Team (Late st Contact Info) Description 12/03/2024 10:45 AM EST Office Visit [facility] Hematology Oncology [address] [place] [phone] Sai Abad MD [address] [place] [phone] Health Maintenance Due Date Last Done Comments COVID-19 Vaccine (#1) 12/28/2000 Hepatitis B Vaccines (1 of 3 - 19+ 3-dose series) 12/28/2014 Pneumococcal Vaccine: Pediat rics (0 to 5 Years) and At-Risk Patients (6 to 64 Years) (1 of 2 - PCV) 12/28/2014 Cervical Cancer Screening: P ap Smear 12/28/2016 Depression Screening 09/03/2022 HIV Screening 09/03/2022 Medicare Annual Wellness Visit 09/03/2022 Social Influencers of Health Screening 09/03/2022 DTaP,Tdap,and Td Vaccines (2 - Td or Tdap) 10/01/2022 10/01/2012 Influenza Vaccine (#1) 2024 Hepatitis C Screening Completed 06/14/2016 HIB Vaccines Aged Out No longer eligi ble based on patient's age to complete this topic HPV Vaccines Aged Out No longer eligi ble based on patient's age to complete this topic Hepatitis A Vaccines Aged Out No long er eligible based on patient's age to complete this topic IPV Vaccines Aged Out No longer eligi ble based on patient's age to complete this topic MMR Vaccines Aged Out No longer eligi ble based on patient's age to complete this topic Meningococcal ACWY Vaccine Aged Out N o longer eligible based on patient's age to complete this topic Meningococcal B Vacine Aged Out No lo nger eligible based on patient's age to complete this topic RSV Immunization Patients Un jose 20 months Aged Out No longer eligible b ased on patient's age to complete this topic Varicella Vaccines Aged Out No longer eligible based on patient's age to complete this topic Procedures Procedure Name Priority Date/Time Associated Diagnosis Comments XR KNEES AP STANDING BILAT STAT 10/17/2024 12:15 PM EST Contusion of right knee, initial encounter CT CHEST W CONTRAST Routine 08/26/2024 1 0:14 AM EST Secondary malignant neoplasm of unspecified lung (CMS/HCC) HEPATITIS C SCREENING Routine 06/14/2016 from Last 3 Months or Most Recently Relevant to Health Maintenance Results * XR Knees AP Standing bilat (10/17/2024 12:15 PM EST) Anatomical Region Laterality Modality Lower Extremities, Knee Bilateral Radiogra phic Imaging 10/17/2024 12:1 8 PM EST Impressions 10/17/2024 12:25 PM EST FINDINGS/IMPRESSION: ??Moderate right and no left knee effusions. ??Periosteal reaction is seen along the anterior cortex of the distal femur with an ill- defined lytic lesion in the distal femoral diaphysis suspicious for bony metastatic disease and nondisplaced pathologic fracture. ??Further evaluation recommended with MRI without and with contrast. ??No displaced fracture or malalignment. -------- FINAL REPORT -------- Dictated By: VERÓNICA KEATING Dictated Date: 10/17/2024 12:18 ET Assigned Physician: VERÓNICA KEATING Reviewed and Electronically Signed By: VERÓNICA KEATING Signed Date: 10/17/2024 12:25 ET Workstation ID: [id number] Transcribed By: Self Edit Transcribed Date: 10/17/2024 12:18 ET Narrative 10/17/2024 12:25 PM EST XR KNEES AP STANDING BILAT INDICATION: ??Pain TECHNIQUE: XR KNEES AP STANDING BILAT COMPARISON: No priors available. Procedure Note Verónica Keating MD - 10/17/2024 XR KNEES AP STANDING BILAT INDICATION: Pain TECHNIQUE: XR KNEES AP STANDING BILAT COMPARISON: No priors available. IMPRESSION: FINDINGS/IMPRESSION: Moderate right and no left knee effusions.Periosteal reaction is seen along the anterior cortex of the distal femurwith an ill-defined lytic lesion in the distal femoral diaphysissuspicious for bony metastatic disease and nondisplaced pathologicfracture. Further evaluation recommended with MRI without and withcontrast. No displaced fracture or malalignment. -------- FINAL REPORT -------- Dictated By: VERÓNCIA KEATING Dictated Date: 10/17/2024 12:18 ET Assigned Physician: VERÓNICA KEATING Reviewed and Electronically Signed By: VERÓNICA KEATING Signed Date: 10/17/2024 12:25 ET Workstation ID: [id number] Transcribed By: Self Edit Transcribed Date: 10/17/2024 12:18 ET Nohemi LEDBETTER IM XR PROCEDURES Final Result * CT Chest w Contrast (08/26/2024 10:14 AM EST) Anatomical Region Laterality Modality Body Computed Tomogra phy 08/26/2024 1:34 PM EST Impressions 08/26/2024 3:45 PM EST 1. ??A right upper lobe lung mass with occlusion of the apical segmental bronchus does not appear significantly changed. 2. ??Mild interval enlargement of a mass in the central left upper lobe with occlusion of the anterior segmental bronchus and progressive postobstructive volume loss. 3. ??Scattered pulmonary nodules concerning for metastatic disease. ??Some of the nodules have increased in size compared with the previous exam. 4. ??Persistent left hydronephrosis. ??Mild hypoenhancement of the left renal parenchyma. -------- FINAL REPORT -------- Dictated By: Adis Pham Dictated Date: 08/26/2024 13:34 ET Assigned Physician: Adis Pham Reviewed and Electronically Signed By: Adis Pham Signed Date: 08/26/2024 15:45 ET Workstation ID: [id number] Transcribed By: Self Edit Transcribed Date: 08/26/2024 13:34 ET Narrative 08/26/2024 3:[address], 08/26/2024. HISTORY: lung cancer. TECHNIQUE: CT of the chest with intravenous contrast administration. ??Coronal and sagittal reformats and MIP reconstructions were created. IV contrast dose: 90 mL ISOVUE-370. COMPARISON: 06/25/2024. Dose length product: 181 ??mGy-cm. FINDINGS: Lungs/pleura: Similar appearance of a large central right upper lobe lung mass measuring up to 5.7 cm in diameter. ??The mass occludes the apical segmental bronchus. A mass in the central left upper lobe appears larger, measuring 4.7 x 3.1 cm, previously 4 x 2.5 cm. ??There is complete occlusion of the anterior segmental bronchus with progressive postobstructive volume loss. Stable 12 mm spiculated nodule in the inferior right middle lobe, series 2 image 164. Stable 12 x 9 mm nodule in the medial left lower lobe, image 148. Several stable clustered nodules in the posterior lateral left lower lobe, with the largest measuring up to 12 mm in diameter, image 128. A 5 mm nodule in the periphery of the left lower lobe is slightly larger and more confluent, previously measuring 4 mm (image 102). Stable 2 mm right upper lobe nodule, series 3 image 85. Enlarging nodule in the lateral right lower lobe, image 119, measuring 4 mm, previously 3 mm Enlarging right lower lobe nodule, image 162, measuring 5 mm, previously demonstrating a thin curvilinear morphology with a maximal diameter of approximately 3 mm No pneumothorax or pleural effusion. Mediastinum/grazyna: No mass or lymphadenopathy. Vasculature: Normal appearance of the aorta and great vessels. ??Normal caliber pulmonary arteries. ??No central pulmonary embolism. Cardiac: Normal heart size. ??No coronary artery calcification. Chest wall: No mass or lymphadenopathy. Limited abdomen: Splenomegaly. ??There is moderate right hydronephrosis with mildly delayed enhancement of the left renal cortex. ??Small area of focal fatty infiltration along the intersegmental fissure of the liver. Bones: Mild degenerative changes of the spine. ??No suspicious bony lesion. Procedure Note Adis Pham MD - 08/26/[address], 08/26/2024. HISTORY: lung cancer. TECHNIQUE: CT of the chest with intravenous contrast administration.Coronal and sagittal reformats and MIP reconstructions were created. IV contrast dose: 90 mL ISOVUE-370. COMPARISON: 06/25/2024. Dose length product: 181 mGy-cm. FINDINGS: Lungs/pleura: Similar appearance of a large central right upper lobe lung mass measuringup to 5.7 cm in diameter. The mass occludes the apical segmentalbronchus. A mass in the central left upper lobe appears larger, measuring 4.7 x 3.1cm, previously 4 x 2.5 cm. There is complete occlusion of the anteriorsegmental bronchus with progressive postobstructive volume loss. Stable 12 mm spiculated nodule in the inferior right middle lobe, series 2image 164. Stable 12 x 9 mm nodule in the medial left lower lobe, image 148. Several stable clustered nodules in the posterior lateral left lower lobe,with the largest measuring up to 12 mm in diameter, image 128. A 5 mm nodule in the periphery of the left lower lobe is slightly largerand more confluent, previously measuring 4 mm (image 102). Stable 2 mm right upper lobe nodule, series 3 image 85. Enlarging nodule in the lateral right lower lobe, image 119, measuring 4mm, previously 3 mm Enlarging right lower lobe nodule, image 162, measuring 5 mm, previouslydemonstrating a thin curvilinear morphology with a maximal diameter ofapproximately 3 mm No pneumothorax or pleural effusion. Mediastinum/grazyna: No mass or lymphadenopathy. Vasculature: Normal appearance of the aorta and great vessels. Normalcaliber pulmonary arteries. No central pulmonary embolism. Cardiac: Normal heart size. No coronary artery calcification. Chest wall: No mass or lymphadenopathy. Limited abdomen: Splenomegaly. There is moderate right hydronephrosiswith mildly delayed enhancement of the left renal cortex. Small area offocal fatty infiltration along the intersegmental fissure of the liver. Bones: Mild degenerative changes of the spine. No suspicious bonylesion. IMPRESSION: 1. A right upper lobe lung mass with occlusion of the apical segmentalbronchus does not appear significantly changed. 2. Mild interval enlargement of a mass in the central left upper lobewith occlusion of the anterior segmental bronchus and progressivepostobstructive volume loss. 3. Scattered pulmonary nodules concerning for metastatic disease. Someof the nodules have increased in size compared with the previous exam. 4. Persistent left hydronephrosis. Mild hypoenhancement of the leftrenal parenchyma. -------- FINAL REPORT -------- Dictated By: Adis Pham Dictated Date: 08/26/2024 13:34 ET Assigned Physician: Adis Pham Reviewed and Electronically Signed By: Adis Pham Signed Date: 08/26/2024 15:45 ET Workstation ID: [id number] Transcribed By: Self Edit Transcribed Date: 08/26/2024 13:34 ET Sai Abad MD IMG CT PROCEDURES Final Result * Hepatitis C Screening (06/14/2016) Hepatitis C Screening abstracted Historical Provider HEALTH MAINTENANCE Final Result from Last 3 Months or Most Recently Relevant to Health Maintenance Insurance [facility] MEDICARE Member Subscriber Plan / Payer (Ef fective 2018-Present) Name:Maria D Dominguez Relation to Subscriber:Self Name:Maria D Dominguez Payer ID:[id number] Group ID:[id number] Type:Not on file Address: [place] [address] [address] [address] Care Teams Hoop Driving Machine Operator Helper Relationship Specialty Start Date End Date Rachelle Billings FNP [address] [place] [address] Dr Ros[address] [place] [phone] PCP - General 12/24/23
== END 2024-11-24 12:03 | disposition home or self-care (01) ==
LOC: HO.HOSX 12:02
PROVIDERS: Visit Provider Orthopaedic Surgery
DX: Z13.89 Encounter for screening for other disorder (principal)

== ENCOUNTER 2024-12-31 08:59 | Outpatient (REF) | payer OTHER, SELFPAY ==
--- OUTSIDE RECORDS SUMMARY | 2025-01-01 09:12 | XMS_ITS | Encounter Summary ---
Author Organization [facility] Address [address] [place] [address] Care Team Providers Care Team Leader/Research Psychologist Name Role Phone Rachelle Billings Primary Care Provider Encounter Details Date Type Department Care Team (Late st Contact Info) Description 07/02/2024 10:19 AM EDT Hospital Encounter TH HISTORIC ENCOUNTERS [facility] CONVERSION ONLY Sai Abad MD [address] [place] [address] Social History Tobacco Use Types [...] underwent transfusional therapy. ??November 2023 patient seen [facility] ER progressive difficulties of abdominal discomfort. ??At [...] consultation by Dr. Eligio Davis??gastrointestinal cancer at [facility]. Recommendations as outlined below. Patient does have [...] of acute pain. Some improvement in CEA [id number] Sai Abad MD documented in this encounter Plan of Treatment Upcoming Encounters Date Type Department Care Team (Late st Contact Info) Description 01/19/2025 12:45 PM EDT Appointment [facility] Pulmonary [address] [place] [phone] 01/21/2025 11:45 AM EDT Office Visit [facility] Hematology Oncology [address] [place] [phone] Sai Abad MD [address] [place] [phone] documented as of this encounter Visit Diagnoses Not on filedocumented in this encounter Care Teams Team Leader/Research Psychologist Relationship Specialty Start Date End Date Rachelle Billings FNP [address] [place] [address] [place] [phone] PCP - General 12/24/23 documented as of this encounter
--- OUTSIDE RECORDS SUMMARY | 2025-01-01 09:12 | XMS_ITS | Encounter Summary ---
Author Organization [facility] Address [address] [place] [address] Care Team Providers Care Power Plant Technician Name Role Phone Rachelle Billings Primary Care Provider Encounter Details Date Type Department Care Team (Late st Contact Info) Description 07/24/2024 10:21 AM EDT Hospital Encounter TH HISTORIC ENCOUNTERS EASTERN CONVERSION ONLY Sai Abad MD [address] [place] [address] Social History Tobacco Use Types [...] underwent transfusional therapy. ??November 2023 patient seen [facility] ER progressive difficulties of abdominal discomfort. [...] consultation by Dr. Eligio Davis??gastrointestinal cancer at [facility]. Recommendations as outlined below. Patient does have [...] count 414,000 fattening 0.76 alk phos 236 [id number] PAST MEDICAL HISTORY: History reviewed. No pertinent [...] Info) Description 01/19/2025 12:45 PM EDT Appointment [facility] Pulmonary [address] [place] [phone] 01/21/2025 11:45 AM EDT Office Visit [facility] Hematology Oncology [address] [place] [phone] Sai Abad MD [address] [place] [phone] documented as of this encounter Visit Diagnoses Not on filedocumented in this encounter Care Teams Power Plant Technician Relationship Specialty Start Date End Date Rachelle Billings FNP [address] [place] [address] [place] [phone] PCP - General 12/24/23 documented as of this encounter
--- OUTSIDE RECORDS SUMMARY | 2025-01-01 09:12 | XMS_ITS | Clinical Summary ---
Author Organization [facility] Address [address] [place] [phone] Phone Care Team Providers Care Rehabilitation Counsellor Name Role Phone Rachelle Billings Primary Care Provider [phone] Allergies Active Allergy Reactions Criticality Noted Date Comments Bupropion 02/27/2014 ANGER Haloperidol 02/27/2014 Paroxetine Rash Low 02/27/2014 Penicillins Rash Low 02/27/2014 Pseudoephedrine 02/27/2014 Medications valACYclovir (VALTREX) 500 mg tablet Take 1 tablet (500 mg total) by mouth 1 (one) time each day. 02/08/20 22 Active sertraline (ZOLOFT) 50 mg tablet Take 1 tablet (50 mg total) by mouth 1 (one) time each day in the morning. 03/31/20 21 Active diphenhydrAMINE (Banophen) 50 mg capsule TAKE 1 CAPSULE BY MOUTH every NIGHT 03/31/20 21 Active prazosin (MINIPRESS) 2 mg capsule Take 3 Caps by mouth at bedtime. 12/20/19 18 Active cloZAPine (CLOZARIL) 100 mg tablet 2 tablets (200 mg total) 2 (two) times a day. Add 0.5 mg am 11/08/19 18 Active diphenhydrAMINE (BENADRYL) 25 mg tablet Take 50 mg by mouth at bedtime as needed. Active ascorbic acid (VITAMIN C) 500 mg tablet Take 1 tablet (500 mg total) by mouth 1 (one) time each day. Active ferrous sulfate 325 mg (65 mg elemental iron) tablet Take 65 mg by mouth. 09/24/20 23 Active diclofenac sodium 3 % gelIndications: Rash Apply topically 2 (two) times a day. Apply to hands and feet twice daily 100 g 09/05/20 24 Active capecitabine (XELODA) 500 mg tabletIndicatio ns:metastatic colorectal cancer Take 4 tablets (2,000 mg total) by mouth 2 (two) times a day For 14 days followed by 7 days off and repeat cycle every 21 days. Swallow tablets whole with water. Do not crush or cut. 112 tablet 5 10/22/19 25 Active diclofenac sodium 3 % gel Apply topically 2 (two) times a day. 100 g 2 10/22/19 25 Active albuterol HFA (PROAIR HFA ; PROVENTIL HFA ; VENTOLIN HFA) 90 mcg/actuation inhalerIndicati ons:Asthma, unspecified asthma severity, unspecified whether complicated, unspecified whether persistent,Mult iple lung nodules Inhale 2 puffs by mouth every 6 (six) hours if needed for shortness of breath (cough). 6.7 g 1 11/04/19 25 2025 Active ipratropium-alb uteroL (DUONEB) 0.5-2.5 mg/3 mL nebulizer solutionIndicat ions:chronic obstructive pulmonary disease with bronchospasms,u nable to use inhaler medications due to mental health Take 3 mL by nebulization every 6 (six) hours. 360 mL 6 12/13/19 25 2025 Active ipratropium-alb uteroL (DUONEB) 0.5-2.5 mg/3 mL nebulizer solutionIndicat ions:Moderate persistent asthma without complication Take 3 mL by nebulization every 6 (six) hours. 360 mL 6 12/13/19 25 2024 Discontinued Active Problems Problem Noted Date Diagnosed Date Anxiety 07/25/2024 Asthma 07/25/2024 Depression 07/25/2024 Genital herpes 07/25/2024 Migraine 07/25/2024 Schizophrenia 07/25/2024 Seizure 07/25/2024 Iron deficiency anemia 04/27/2021 Encounters Date Type Department Care Team Description 12/31/2024 Telephone [facility] Hematology Oncology [address] [place] [phone] Sai Abad MD 12/17/2024 Telephone [facility] Hematology Oncology [address] [place] [phone] Sai Abad MD 12/16/2024 9:40 AM EDT - 12/16/2024 11:59 PM EDT Hospital Encounter [facility] CT Scan [address] [place] [address] Malignant neoplasm of colon, unspecified part of colon (CMS/HCC) Discharge Disposition: Home or Self Care 12/12/2024 3:30 PM EDT Consult Pulmonology [address] [phone] Keesha German MD Moderate persistent asthma without complication (Primary Dx); Multiple lung nodules 12/08/2024 Telephone [facility] Hematology Oncology [address] [place] [phone] Sai Abad MD 12/03/2024 10:45 AM EST Office Visit [facility] Hematology Oncology [address] [place] [phone] Sai Abad MD Multiple lung nodules (Primary Dx) 12/03/2024 [facility] Hematology Oncology [address] [place] [phone] Sai Abad MD Letter Request 11/20/2024 [facility] Hematology Oncology [address] [place] [phone] Sai Abad MD Cough 11/11/2024 [facility] Hematology Oncology [address] [place] [phone] Sai Abad MD 11/04/2024 [facility] Hematology Oncology [address] [place] [phone] Sai Abad MD 10/22/2024 10:45 AM EST Office Visit [facility] Hematology Oncology [address] [place] [phone] Sai Abad MD Malignant neoplasm of colon, unspecified part of colon ([facility]/HCC) (Primary Dx) 10/17/2024 11:55 AM EST - 10/17/2024 11:59 PM EST Hospital Encounter [facility] Xray [address] [place] [phone] Contusion of right knee, initial encounter Discharge Disposition: Home or Self Care 10/16/2024 Telephone [facility] Hematology Oncology [address] [place] [phone] Sai Abad MD Right Knee Pain from Last 3 Months Immunizations Name Administration Dates Next Due Td Tetanus diptheria (Tdvax) 7yo and older 10/01 Surgical History Surgery Date Site/Laterality Comments WISDOM TOOTH EXTRACTION 2011 PROCEDURE: HISTORICAL WISDOM TEETH EXTRACTION Medical History Medical History Date Comments Asthma DX:Asthma Migraine DX:Migraine Seizure ([facility]/HCC) DX:Seizure ( C); COMMENT: followed by psych: javier wong at [facility] sees them once per month-part of the mental health aspect: sees [facility] yearly Depression DX:Depression Anxiety DX:Anxiety Bipolar affective disorder (CMS/HCC) DX:Bipolar affective disorder ([facility]) PTSD (post-traumatic stress disorder) DX:PTSD (post-traumatic stress disorder) H/O self-harm DX:H/O self-harm ; COMMENT: cutting History of suicidal ideation DX: History of suicidal ideation Genital herpes DX:Genital herpe s Schizophrenia DX:Schizophrenia ([facility]) Family History Medical History Relation Name Comments [...] Sign Reading Time Taken Comments Blood Pressure 136/81 12/12/2024 3:48 PM EDT Pulse 108 12/12/2024 3:48 PM EDT Temperature 36.8 ??C (98.2 ??F) 12/12/2024 3:48 PM ED T Respiratory Rate - - Oxygen Saturation 100% 12/12/2024 3:48 PM EDT Inhaled Oxygen Concentration - - Weight 66.5 kg (146 lb 9.6 oz) 12/12/2024 3:48 P M EDT Height 175.3 cm (5' 9 ) 12/12/2024 3:48 PM EDT Body Mass Index 21.65 12/12/2024 3:48 PM EDT Plan of Treatment Upcoming Encounters Date Type Department Care Team (Late st Contact Info) Description 01/19/2025 12:45 PM EDT Appointment [facility] Pulmonary [address] [place] [phone] 01/21/2025 11:45 AM EDT Office Visit [facility] Hematology Oncology [address] [place] [phone] Sai Abad MD [address] [place] [phone] Health Maintenance Due Date Last Done Comments [...] Td or Tdap) 10/01/2022 10/01/2012 Influenza Vaccine (Season Ended) 2025 Hepatitis C Screening Completed 06/14/2016 HIB Vaccines [...] Procedure Name Priority Date/Time Associated Diagnosis Comments CT CHEST/ABDOMEN/PELVI S WO CONTRAST Routine 12/16/2024 10:05 AM EDT Malignant neoplasm of colon, unspecified part of colon (CMS/HCC) XR KNEES AP STANDING BILAT STAT 10/17/2024 12:15 PM EST Contusion of right knee, initial encounter HEPATITIS C SCREENING Routine 06/14/2016 from Last 3 Months or Most Recently Relevant to Health Maintenance Results * CT Chest/Abdomen/Pelvis wo Contrast (12/16/2024 10:05 AM EDT) Anatomical Region Laterality Modality Body Computed Tomogra phy 12/16/2024 10:2 9 AM EDT Impressions 12/16/2024 11:10 AM EDT Impression: 1. Increase in size and number of bilateral pulmonary metastases. 2. Complete obstruction of the bilateral upper lobe bronchi with increase in size of the airless upper lobes suggesting tumor progression versus worsening postobstructive pneumonia. 3. New left lower lobe endobronchial mass, presumed metastatic disease. 4. Increase in size of known pelvic/perirectal mass with worsening osseous destruction of the sacrum and left ischium. 5. High-grade bilateral distal ureteral obstruction at the level of the pelvic mass, also reported previously, with mild worsening of bilateral hydroureteronephrosis. 6. New nondisplaced fracture of the right sacral ala, presumed pathologic. 7. New trace ascites. [facility] ([id number]) -------- FINAL REPORT -------- Dictated By: Reina Gibson Dictated Date: 12/16/2024 10:29 ET Assigned Physician: Reina Gibson Reviewed and Electronically Signed By: Reina Gibson Signed Date: 12/16/2024 11:10 ET Workstation ID: [id number] Transcribed By: Self Edit Transcribed Date: 12/16/2024 10:29 ET Narrative 12/16/2024 11:10 AM EDT History: Stage IV metastatic rectal carcinoma. Monitoring exam. Comparison: 08/26/24, 06/25/24 Technique: Helical volumetric imaging of the chest, abdomen and pelvis was performed following oral contrast. DLP: 794.55 mGy/cm Mum[employer] VCT Iterative reconstruction technique Findings: Chest: There is persistent obstruction of the right upper lobe bronchus with an airless right upper lobe. The size of the airless lobe has increased which may represent progression of presumed malignancy or worsening postobstructive pneumonia. Similarly, the left upper lobe bronchus is completely obstructed, with an airless left upper lobe which is mildly increased in size. There is new endoluminal soft tissue within the left lower lobe bronchus contiguous with the collapsed left upper lobe, consistent with tumor progression. This is associated with focal marked narrowing of the airway lumen. Solid, noncalcified pulmonary nodules have increased in size and number since the previous study, consistent with metastatic disease. For example, a 21 mm right middle lobe nodule (image 154 series 3), measured 11 mm on the previous exam, a 9 mm right lower lobe nodule (image 133), measured 3 cm previously, and a 5 mm right lower lobe nodule (image 123) is new. No pleural or pericardial effusions are seen. Enlarged lymph nodes are seen in the superior mediastinum and paratracheal/precarinal areas and have increased in size, presumed metastatic disease. Abdomen/pelvis: The unenhanced liver is normal in size and configuration. No masses are identified. The gallbladder is partially contracted. No evidence of biliary obstruction is seen. The spleen is mildly enlarged, approximately 15 cm in maximum diameter, similar to previous. The pancreas and adrenal glands are unremarkable. The kidneys are normal in position and size. Severe bilateral hydroureteronephrosis is identified to the level of a large pelvic, perirectal soft tissue mass corresponding to the patient's known primary malignancy. The degree of hydroureteronephrosis appears to have mildly increased since 06/25/24, with transverse measurements of the left renal pelvis now 38 mm compared to 32 mm and right renal pelvis diameter now 32 mm compared to 29 mm. The perinephric fat is preserved. A large, confluent soft tissue mass is again seen in the posterior pelvis, centered in the perirectal/presacral space, with extensive destruction of the sacrum and coccyx. The mass has increased in size since 06/25/24, now approximately 12.7 cm transverse by 11 cm in length compared to 11 cm transverse by 9.3 cm in length on 06/25/24. There is more extensive involvement of the S1 and S2 vertebra now, and lytic destruction of the posterior inferior aspect of the left ischium is now seen, directly contiguous with the pelvic mass (image 237 series 4). The mass extends anteriorly to abut the posterior wall of the urinary bladder. The uterus is displaced anteriorly and to the left, unchanged. A trace amount of ascites is seen in the paracolic gutters, new. Bilateral inguinal lymphadenopathy has progressed. A 14 x 17 mm partially calcified lymph node in the sigmoid mesentery is without significant change, presumed metastatic disease. Multiple subcentimeter abdominal and pelvic retroperitoneal lymphadenopathy is without significant change. There are also several subcentimeter mesenteric lymph nodes which appear stable. A loop colostomy is again seen in the left lower quadrant. Enteric contrast given for the study has reached the colon. Musculoskeletal: A nondisplaced fracture of the right sacral ala is new. Procedure Note Reina Gibson MD - 12/16/2024 History: Stage IV metastatic rectal carcinoma. Monitoring exam. Comparison: 08/26/24, 06/25/24 Technique: Helical volumetric imaging of the chest, abdomen and pelvis wasperformed following oral contrast. DLP: 794.55 mGy/cm [employer] VCT Iterative reconstruction technique Findings: Chest: There is persistent obstruction of the right upper lobe bronchus with anairless right upper lobe. The size of the airless lobe has increased whichmay represent progression of presumed malignancy or worseningpostobstructive pneumonia. Similarly, the left upper lobe bronchus iscompletely obstructed, with an airless left upper lobe which is mildlyincreased in size. There is new endoluminal soft tissue within the left lower lobe bronchuscontiguous with the collapsed left upper lobe, consistent with tumorprogression. This is associated with focal marked narrowing of the airwaylumen. Solid, noncalcified pulmonary nodules have increased in size and numbersince the previous study, consistent with metastatic disease. For example,a 21 mm right middle lobe nodule (image 154 series 3), measured 11 mm onthe previous exam, a 9 mm right lower lobe nodule (image 133), measured 3cm previously, and a 5 mm right lower lobe nodule (image 123) is new. No pleural or pericardial effusions are seen. Enlarged lymph nodes are seen in the superior mediastinum andparatracheal/precarinal areas and have increased in size, presumedmetastatic disease. Abdomen/pelvis: The unenhanced liver is normal in size and configuration. No masses areidentified. The gallbladder is partially contracted. No evidence ofbiliary obstruction is seen. The spleen is mildly enlarged, [id number] cm in maximum diameter, similar to previous. The pancreas and adrenalglands are unremarkable. The kidneys are normal in position and size. Severe bilateralhydroureteronephrosis is identified to the level of a large pelvic,perirectal soft tissue mass corresponding to the patient's known primarymalignancy. The degree of hydroureteronephrosis appears to have mildlyincreased since 06/25/24, with transverse measurements of the left renalpelvis now 38 mm compared to 32 mm and right renal pelvis diameter now 32mm compared to 29 mm. The perinephric fat is preserved. A large, confluent soft tissue mass is again seen in the posterior pelvis,centered in the perirectal/presacral space, with extensive destruction ofthe sacrum and coccyx. The mass has increased in size since 06/25/24, nowapproximately 12.7 cm transverse by 11 cm in length compared to 11 cmtransverse by 9.3 cm in length on 06/25/24. There is more extensiveinvolvement of the S1 and S2 vertebra now, and lytic destruction of theposterior inferior aspect of the left ischium is now seen, directlycontiguous with the pelvic mass (image 237 series 4). The mass extendsanteriorly to abut the posterior wall of the urinary bladder. The uterusis displaced anteriorly and to the left, unchanged. A trace amount of ascites is seen in the paracolic gutters, new. Bilateralinguinal lymphadenopathy has progressed. A 14 x 17 mm partially calcifiedlymph node in the sigmoid mesentery is without significant change,presumed metastatic disease. Multiple subcentimeter abdominal and pelvicretroperitoneal lymphadenopathy is without significant change. There arealso several subcentimeter mesenteric lymph nodes which appear stable. A loop colostomy is again seen in the left lower quadrant. Entericcontrast given for the study has reached the colon. Musculoskeletal: A nondisplaced fracture of the right sacral ala is new. IMPRESSION: Impression: 1. Increase in size and number of bilateral pulmonary metastases. 2. Complete obstruction of the bilateral upper lobe bronchi with increasein size of the airless upper lobes suggesting tumor progression versusworsening postobstructive pneumonia. 3. New left lower lobe endobronchial mass, presumed metastatic disease. 4. Increase in size of known pelvic/perirectal mass with worsening osseousdestruction of the sacrum and left ischium. 5. High-grade bilateral distal ureteral obstruction at the level of thepelvic mass, also reported previously, with mild worsening of bilateralhydroureteronephrosis. 6. New nondisplaced fracture of the right sacral ala, presumedpathologic. 7. New trace ascites. [facility] ([id number]) -------- FINAL REPORT -------- Dictated By: Reina Gibson Dictated Date: 12/16/2024 10:29 ET Assigned Physician: Reina Gibson Reviewed and Electronically Signed By: Reina Gibson Signed Date: 12/16/2024 11:10 ET Workstation ID: [id number] Transcribed By: Self Edit Transcribed Date: 12/16/2024 10:29 ET us Sai Abad MD IMG CT PROCEDURES Final Result * XR Knees AP Standing bilat (10/17/2024 12:15 PM EST) Anatomical Region Laterality Modality Lower Extremities, Knee Bilateral [facility] 10/17/2024 12:1 8 PM EST Impressions [...] Signed Date: 10/17/2024 12:25 ET Workstation ID: [id number] Transcribed By: Self Edit Transcribed Date: 10/17/2024 [...] Signed Date: 10/17/2024 12:25 ET Workstation ID: [id number] Transcribed By: Self Edit Transcribed Date: 10/17/2024 12:18 ET us Nohemi LEDBETTER IMG XR PROCEDURES Final Result * Hepatitis C Screening (06/14/2016) Hepatitis C Screening abstracted us Historical Provider MD HEALTH MAINTENANCE Final Result from Last 3 Months or Most Recently Relevant to Health Maintenance Insurance [employer] MED[employer]ARE Member Subscriber Plan / Payer (Ef fective 2018-Present) Name:Maria D Dominguez Relation to Subscriber:Self Name:Maria D Dominguez Payer ID:[id number] Group ID:[id number] Type:Not on file Address: [place] [address] [address] Care Teams Rehabilitation Counsellor Relationship Specialty Start Date End Date Rachelle Billings FNP [address] [place] [address] [place] [phone] PCP - General 12/24/23
--- OUTSIDE RECORDS SUMMARY | 2025-01-01 09:12 | XMS_ITS | Clinical Summary ---
Author Organization [facility] Address [address] [place] [address] Care Team Providers Care Bessemer Converter Blower Name Role Phone Rachelle Billings Primary Care Provider [phone] Allergies Active Allergy Reactions Criticality Noted Date [...] age to complete this topic Care Teams Bessemer Converter Blower Relationship Specialty Start Date End Date Rachelle Billings [address] [place] [address] [address] [place], [place] [phone] PCP - General Family Medicine 12/24/23
--- OUTSIDE RECORDS SUMMARY | 2025-01-01 09:12 | XMS_ITS | Encounter Summary ---
Author Organization [facility] Address [address] [place] [address] Care Team Providers Care Funeral Professional Name Role Phone Rachelle Billings Primary Care Provider [phone] Encounter Details Date Type Department Care Team (Late st Contact Info) Description 07/10/2024 11:46 AM EDT Hospital Encounter TH HISTORIC ENCOUNTERS EASTERN CONVERSION ONLY Nohemi Ramos PA [address] [place] [address] Social History Tobacco Use Types Packs/Day Years [...] Description 01/19/2025 12:45 PM EDT Appointment [facility] Pulmonary [address] [place] [phone] 01/21/2025 11:45 AM EDT Office Visit [facility] Hematology Oncology [address] [place] [phone] Sai Abad MD [address] [place] [phone] documented as of this encounter Visit Diagnoses Not on filedocumented in this encounter Care Teams Funeral Professional Relationship Specialty Start Date End Date Rachelle Billings FNP [address] [place] [address] [place] [phone] PCP - General 12/24/23 documented as of this encounter
--- OUTSIDE RECORDS SUMMARY | 2025-01-01 09:12 | XMS_ITS | Encounter Summary ---
Author Organization [facility] Address [address] [place] [address] Care Team Providers Care Surgical Elastic Knitter Name Role Phone Rachelle Billings Primary Care Provider [phone] Encounter Details Date Type Department Care Team (Late st Contact Info) Description 12/31/2024 Telephone [facility] Hematology Oncology [address] [place] [address] Sai Abad MD [address] [place] [address] Social History Tobacco Use Types [...] as of this encounter Progress Notes * Loreta Chris MA - 12/31/2024 10:54 AM EDT Message given to * Ivone Avila - 12/31/2024 9:25 AM EDT Patient's mom Domenica called to book a follow up towards end of the month. States Maria D is doing well. Domenica asks if there is any suggestions on a physical therapist closer to [place] rather than travelling to [place] to help strengthen her legs. documented in this encounter Plan of Treatment Upcoming Encounters Date Type Department Care Team (Late st Contact Info) Description 01/19/2025 12:45 PM EDT Appointment [facility] Pulmonary [address] [place] [phone] 01/21/2025 11:45 AM EDT Office Visit [facility] Hematology Oncology [address] [place] [phone] Sai Abad MD [address] [place] [phone] documented as of this encounter Visit Diagnoses Not on filedocumented in this encounter Care Teams Surgical Elastic Knitter Relationship Specialty Start Date End Date Rachelle Billings FNP [address] [place] [address] [place] [phone] PCP - General 12/24/23 documented as of this encounter
== END 2024-12-31 09:00 | disposition home or self-care (01) ==
LOC: HO.HOSX 08:59
PROVIDERS: Visit Provider Orthopaedic Surgery
DX: Z13.89 Encounter for screening for other disorder (principal)

== ENCOUNTER 2025-02-26 09:02 | Outpatient (AMB) | payer OTHER, SELFPAY ==
--- NOTE | 2025-02-26 09:08 | MHC.PC.OV ---
Intake Visit Reasons: paperwork from [employer] Required: No Allergies bupropion [From Wellbutrin] Allergy (Intermediate, Verified 02/26/25 09:09) Unknown paroxetine [From Paxil] Allergy (Intermediate, Verified 02/26/25 09:09) Seizure Penicillins Allergy (Intermediate, Verified 02/26/25 09:09) Hives Tobacco use date assessed: 02/26/25 Dental Screening Dental Screen Date: 02/26/25 Did you have a dental visit in the last 12 months?: Yes Did you have a dental problem in the last 6 months where you did not have access to dental care?: No Was dental information given to patient?: Patient has dentist [facility] Medical History Back pain Tremor Imbalance Incontinence Memory loss Schizoaffective disorder Anxiety and depression Genital herpes Acid reflux IBS (irritable bowel syndrome) Cancer Surgical History History of creation of ostomy Cancer determined by lung biopsy Family History Father Substance use disorder High blood pressure Alcoholism in family Mother Substance use disorder Mental health disorder Alcoholism in family Social History Housing: House Alcohol intake: never Patient Tobacco Use Status: Never used Tobacco e-Cigarette/Vaping Use: Never Used Second Hand Smoke Exposure: No service: No Current occupational status: disabled Cognitive needs: No Hearing needs: No Vision needs: Yes (reading glasses) Questionnaire PHQ-9 Over the last 2 weeks, how often have you been bothered by any of the following problems? 1. Little interest or pleasure in doing things: nearly every day 2. Feeling down, depressed, or hopeless: nearly every day 3. Trouble falling or staying asleep, or sleeping too much: nearly every day 4. Feeling tired or having little energy: nearly every day 5. Poor appetite or overeating: nearly every day 6. Feeling bad about yourself - or that you are a failure or have let yourself or your family down: not at all 7. Trouble concentrating on things, such as reading the newspaper or watching television: not at all 8. Moving or speaking so slowly that other people could have noticed. Or the opposite - being so fidgety or restless that you have been moving around a lot more than usual: not at all 9. Thoughts that you would be better off or of hurting yourself in some way: not at all Total score: 15 Depression Screening Interpretation: Positive Depression Screening Done: Yes 13384 - PHQ-9 Billing: Yes Source: Developed by Drs. Garland Duron, Kristy Rincon, Christiano Terry and colleagues, with an educational doug from [employer]. Thrive Questionnaire Date Thrive assessed: 02/26/25 I am a: Parent/Caregiver What is your living situation today?: I have a steady place to live Within the past 12 months, did the food you bought not last and you didn't have the money to get more?: Never true Within the past 12 months, did you worry whether your food would run out before you got money to buy more?: Never true Do you have trouble paying for medicines?: No Do you have trouble getting transportation to medical appointments?: No Do you have trouble paying your heating and electricity bill?: I choose not to answer this question Do you have trouble taking care of your child, family member or friend?: No Do you have trouble with day-to-day activities such as bathing, preparing meals, shopping, managing finances, etc.?: I choose not to answer this question Are you currently unemployed and looking for a job?: I choose not to answer this question Are you interested in more education?: I choose not to answer this question Please select the resources that you would like help with: None Currently or been in a relationship where the following occur: No concerns reported THRIVE Score: 0 AUDIT C Alcohol Use Questionnaire (AUDIT-C) 1. How often do you have a drink containing alcohol?: Never Total Score: 0 CLINTON-7 AMB Questionnaire CLINTON-7 Date CLINTON - 7 assessed: 02/26/25 Feeling nervous, anxious, or on edge: 0 = Not at all Not being able to stop or control worryin = Not at all Worrying too much about different things: 0 = Not at all Trouble relaxin = Not at all Being so restless that it is hard to sit still: 0 = Not at all Becoming easily annoyed or irritable: 0 = Not at all Feeling afraid as if something awful might happen: 0 = Not at all Total CLINTON-7 score (0-4 normal; 5-9 mild; 10-14 moderate; 15-21 severe): 0 Source: Developed by Drs. Garland Duron, Kristy Rincon, Christiano Terry and colleagues, with an educational doug from [employer]. CLINTON-7 Assessment Billing CLINTON-7 Assessment Tool: CLINTON-7 Assessment 94334 Physical exam (Primary Care) Tobacco/Smoking Status: Tobacco use Status Tobacco use date assessed 11/16/23 02/19/24 12:47 Patient Tobacco Use Status Never used Tobacco 02/19/24 12:47 e-Cigarette/Vaping Use Never Used 02/19/24 12:47 Depression Screening Interpretation: Positive Thrive Assessment: Date of Thrive Assessment Date Thrive assessed 02/26/25 02/26/25 09:02 Currently or been in a relationship where the following occur: No concerns reported Coding Additional Codes PHQ-9 - 65689 - PHQ-9 Billing: Yes ([id number]) CLINTON-7 Assessment Billing - CLINTON-7 Assessment Tool: CLINTON-7 Assessment 98829 ([id number])
--- NOTE | 2025-02-26 09:24 | MHC.PC.OV ---
Vital Signs 02/26/25 09:34 Height 5 ft 7 in Weight 120 lb BMI 18.8 Intake Visit Reasons: paperwork from [employer] Allergies bupropion [From Wellbutrin] Allergy (Intermediate, Verified 02/26/25 09:09) Unknown paroxetine [From Paxil] Allergy (Intermediate, Verified 02/26/25 09:09) Seizure Penicillins Allergy (Intermediate, Verified 02/26/25 09:09) Hives Medication List - Last Reconciled 02/26/25 by MAURA Redman- acetaminophen ER 1,300 mg (2 x 650 mg) PO Q12H 30 days albuterol sulfate 90 mcg/actuation 2 puffs inhalation Q6H PRN ascorbate calcium (vitamin C) 500 mg PO DAILY clozapine 400 mg PO BEDTIME diaper,brief,adult,disposable (Briefs, Adult-Extra Large) As directed, Frontal Tape Briefs - Diaper With Tabs docusate sodium 100 mg PO BID ferrous gluconate 225 mg PO DAILY fluticasone propionate 50 mcg/actuation (Flonase Allergy Relief) 1 spray intranasal BID lidocaine-prilocaine 2.5-2.5 % Apply 2.5 g (1/2 of the 5 g tube) over 20 to 25 cm2 of skin surface area) for at least 1 hour prior to procedure loratadine (Claritin) 10 mg PO DAILY PRN lorazepam mg PO methenamine hippurate 1 g PO DAILY 90 days mirabegron ER (Myrbetriq) 25 mg PO DAILY wkrwiuar-fzlf-LX-calcium-mins 9 mg iron-400 mcg (Therapeutic-M) 1 tab PO DAILY 90 days ondansetron 4 mg PO Q8H PRN 30 days pantoprazole 40 mg PO DAILY polyethylene glycol 3350 (Miralax) 17 grams PO DAILY prazosin 6 mg PO BEDTIME simethicone (Gas Relief (simethicone)) 125 mg PO QID PRN 30 days therapeutic multivitamin 1 tab PO DAILY valacyclovir 1,000 mg PO DAILY Tobacco use date assessed: 11/16/23 Dental Screening Dental Screen Date: 11/16/23 HPI HPI Comments History of Present Illness Details 29-year-old female schizophrenia, 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 - Diagnosed with metastatic Ca. Managed by Mary. Note from yesterday, Dr Abad, indicates Hospice recommendation - Schizophrenia - hard time managing; scared of all medical care; does not understand fully what is going on. - Hyperventilation syndrome related to anxiety. Responds well to Albuterol updrafts. - Likes Ensure, would like RX for this. - Cont with supplements. - GERD causing stomach pain and burping. PPI not helping. Wonders if there is anything else. - Cont w/ colostomy. - Urinary incont - Consulted w/ Dr Marino for R knee pain - noted mass, MRI planned for tomorrow Family encouraged to cancel Mom states she needs this to confirm she is end of life and hospice ready - Mom is providing care to patient through [facility] and needs paperwork completed. This was done at time of visit and returned to her. Review of Systems - General: Reports severe developmental delay, severe anxiety, severe depression. - Respiratory: Reports difficulty breathing. - Gastrointestinal: Reports stomach pain, significant burping. - Musculoskeletal: Reports severe knee pain and swelling. - Neurological/Psychiatric: Reports severe anxiety, hyperventilation, severe depression. - Hematologic/Lymphatic: Reports anemia, hypokalemia on previous labs that i do not have. Discussion Notes During the visit, the ongoing management of the patient's cancers was discussed, considering the presence of metastasis to the bones, particularly in the knee. We reviewed the challenges related to her severe mental health issues, including anxiety and depression, which complicate her care. The importance of maintaining nutritional support through Ensure supplementation and managing her stomach pain and GERD symptoms was emphasized. The potential benefits of hospice care were discussed, highlighting the additional support it could provide both to the patient and the family. We also talked about the current treatment strategy, including the use of Ativan for anxiety and the use of Ensure for nutritional support with the understanding that the ensure will not reverse the cancer or change her prognosis. . Follow-up was planned to reassess her condition and make further decisions regarding her care. Assessment and Plan 1. Cancer management - Monitor symptoms, strongly encouraged hospice care for support. Not ready for this yet. 2. Nutritional support - Ensure supplementation, RX provided 3. GERD - Start liquid carafate to see if this will help. Consent Patient was informed and verbally consented to the use of an ambient scribe for clinic note documentation during this visit. Total time spent caring for the patient today was 60 minutes. This includes time spent before the visit reviewing the chart, time spent during the visit, and time spent after the visit on documentation, reviewing laboratory results, diagnostic imaging, medications, performing a medically necessary evaluation, counseling on diagnoses, care coordination, ordering appropriate tests, ordering appropriate medications, review of tests performed by other providers, reporting test results with the patient, communication with other healthcare providers. [facility] Medical History Back pain Tremor Imbalance Incontinence Memory loss Schizoaffective disorder Anxiety and depression Genital herpes Acid reflux IBS (irritable bowel syndrome) Cancer Surgical History History of creation of ostomy Cancer determined by lung biopsy Family History Father Substance use disorder High blood pressure Alcoholism in family Mother Substance use disorder Mental health disorder Alcoholism in family Social History Housing: House Alcohol intake: never Patient Tobacco Use Status: Never used Tobacco e-Cigarette/Vaping Use: Never Used Second Hand Smoke Exposure: No service: No Current occupational status: disabled Cognitive needs: No Hearing needs: No Vision needs: Yes (reading glasses) Questionnaire PHQ-9 Over the last 2 weeks, how often have you been bothered by any of the following problems? 1. Little interest or pleasure in doing things: nearly every day 2. Feeling down, depressed, or hopeless: nearly every day 4. Feeling tired or having little energy: nearly every day 5. Poor appetite or overeating: nearly every day 6. Feeling bad about yourself - or that you are a failure or have let yourself or your family down: not at all 7. Trouble concentrating on things, such as reading the newspaper or watching television: not at all 8. Moving or speaking so slowly that other people could have noticed. Or the opposite - being so fidgety or restless that you have been moving around a lot more than usual: not at all 9. Thoughts that you would be better off or of hurting yourself in some way: not at all Source: Developed by Drs. Garland Duron, Kristy Rincon, Christiano Terry and colleagues, with an educational doug from [employer]. Thrive Questionnaire Date Thrive assessed: 11/16/23 I am a: Parent/Caregiver What is your living situation today?: I have a steady place to live Within the past 12 months, did the food you bought not last and you didn't have the money to get more?: Never true Within the past 12 months, did you worry whether your food would run out before you got money to buy more?: Never true Do you have trouble paying for medicines?: No Do you have trouble getting transportation to medical appointments?: No Do you have trouble paying your heating and electricity bill?: I choose not to answer this question Do you have trouble taking care of your child, family member or friend?: No Do you have trouble with day-to-day activities such as bathing, preparing meals, shopping, managing finances, etc.?: I choose not to answer this question Are you currently unemployed and looking for a job?: I choose not to answer this question Are you interested in more education?: I choose not to answer this question Please select the resources that you would like help with: None Currently or been in a relationship where the following occur: No concerns reported THRIVE Score: 0 AUDIT C Alcohol Use Questionnaire (AUDIT-C) 1. How often do you have a drink containing alcohol?: Never Total Score: 0 CLINTON-7 AMB Questionnaire CLINTON-7 Date CLINTON - 7 assessed: 11/16/23 Feeling nervous, anxious, or on edge: 0 = Not at all Source: Developed by Drs. Garland Duron, Kristy Rincon, Christiano Terry and colleagues, with an educational doug from [employer]. Physical exam (Primary Care) Tobacco/Smoking Status: Tobacco use Status Tobacco use date assessed 11/16/23 02/26/25 09:30 Patient Tobacco Use Status Never used Tobacco 02/26/25 09:30 e-Cigarette/Vaping Use Never Used 02/26/25 09:30 Thrive Assessment: Date of Thrive Assessment Date Thrive assessed 11/16/23 02/26/25 09:30 Currently or been in a relationship where the following occur: No concerns reported Coding Level of Care Code Est Pt Level 5 (32657) Complex EM visit Add On G2211 Diagnoses Rectal adenocarcinoma metastatic to lung C20; C78.00 Paranoid schizophrenia F20.0 Schizophrenia type: paranoid schizophrenia End of life care Z51.5 Gastroesophageal reflux disease without esophagitis K21.9 Esophagitis presence: without esophagitis Presence of sigmoid colostomy Z93.3 Assessment & Plan Assessment & Plan (1) Rectal adenocarcinoma metastatic to lung: Code(s): C20 - Malignant neoplasm of rectum; C78.00 - Secondary malignant neoplasm of unspecified lung Category: Medical (2) Schizophrenia: Comment: lives in [facility]; managed by Psychiatry Code(s): F20.9 - Schizophrenia, unspecified Category: Medical Qualifiers: Schizophrenia type: paranoid schizophrenia Qualified Code(s): F20.0 - Paranoid schizophrenia (3) End of life care: Code(s): Z51.5 - Encounter for palliative care Category: Medical (4) Acid reflux: Code(s): K21.9 - Gastro-esophageal reflux disease without esophagitis Category: Medical Qualifiers: Esophagitis presence: without esophagitis Qualified Code(s): K21.9 - Gastro-esophageal reflux disease without esophagitis (5) Presence of sigmoid colostomy: Comment: diverting loop colostomy Code(s): Z93.3 - Colostomy status Category: Medical Plan . Medications: New food supplemt, lactose-reduced (Ensure Original oral liquid) TAKE 1 BOTTLE, 237ML, DAILY 1 ea PO DAILY 7,110 mL 12RF albuterol sulfate 2.5 mg (3 mL) inhalation QID PRN 180 mL 2RF shortness of breath or wheezing sucralfate (Carafate) 10 mL PO QIDACHS 1,200 mL 12RF Refilled fluticasone propionate 50 mcg/actuation (Flonase Allergy Relief) administer into each nostril 1 spray intranasal BID 16 grams 12RF
[2025-02-26 09:34] VITALS: BMI 18.8
== END 2025-02-26 11:52 | disposition home or self-care (01) ==
LOC: HO.HMCFM 09:02
PROVIDERS: PCP Nurse Practitioner Family; Visit Provider Nurse Practitioner Family
DX: C20 Malignant neoplasm of rectum (principal); C78.00 Secondary malignant neoplasm of unspecified lung; F20.0 Paranoid schizophrenia; Z93.3 Colostomy status; Z51.5 Encounter for palliative care; K21.9 Gastro-esophageal reflux disease without esophagitis

== ENCOUNTER → 2025-02-26 09:02 | Outpatient (BNVA) | payer OTHER, SELFPAY | PROVIDERS: PCP Nurse Practitioner Family; Visit Provider Nurse Practitioner Family | DX: C20 Malignant neoplasm of rectum (principal); C78.00 Secondary malignant neoplasm of unspecified lung; F20.9 Schizophrenia, unspecified; K21.9 Gastro-esophageal reflux disease without esophagitis; Z93.3 Colostomy status; Z51.5 Encounter for palliative care | CPT/HCPCS: 99212 ==

== ENCOUNTER 2025-02-27 15:45 | Outpatient (AMB) | payer OTHER, SELFPAY ==
--- NOTE | 2025-02-27 15:29 | MHC.PC.OV ---
Vital Signs 02/27/25 16:38 Height 5 ft 7 in Weight 125 lb BMI 19.6 BP 119/73 Pulse 125 H Pulse Source Pulse Oximeter Intake Visit Reasons: Wellness check Intake Note: Maria D presents for a telehealth wellness check in. Allergies bupropion [From Wellbutrin] Allergy (Intermediate, Verified 02/27/25 15:29) Unknown paroxetine [From Paxil] Allergy (Intermediate, Verified 02/27/25 15:29) Seizure Penicillins Allergy (Intermediate, Verified 02/27/25 15:29) Hives Medication List - Last Reconciled 02/27/25 by Rachelle Billings, MAURA- acetaminophen ER 1,300 mg (2 x 650 mg) PO Q12H 30 days albuterol sulfate 90 mcg/actuation 2 puffs inhalation Q6H PRN albuterol sulfate 2.5 mg (3 mL) inhalation QID PRN alprazolam 0.5 mg PO TID ascorbate calcium (vitamin C) 500 mg PO DAILY clozapine 400 mg PO BID diaper,brief,adult,disposable (Briefs, Adult-Extra Large) As directed, Frontal Tape Briefs - Diaper With Tabs docusate sodium 100 mg PO BID PRN ferrous gluconate 225 mg PO DAILY fluticasone propionate 50 mcg/actuation (Flonase Allergy Relief) 1 spray intranasal BID food supplemt, lactose-reduced (Ensure Original oral liquid) 1 ea PO TID lidocaine-prilocaine 2.5-2.5 % Apply 2.5 g (1/2 of the 5 g tube) over 20 to 25 cm2 of skin surface area) for at least 1 hour prior to procedure methenamine hippurate 1 g PO DAILY 90 days bslztuxn-wpqp-EO-calcium-mins 9 mg iron-400 mcg (Therapeutic-M) 1 tab PO DAILY 90 days ondansetron 4 mg PO Q8H PRN 30 days pantoprazole 40 mg PO DAILY polyethylene glycol 3350 (Miralax) 17 grams PO DAILY potassium chloride ER 10 mEq PO DAILY prednisone 5 mg PO DAILY simethicone (Gas Relief (simethicone)) 125 mg PO QID PRN 30 days sucralfate (Carafate) 10 mL PO QIDACHS therapeutic multivitamin 1 tab PO DAILY valacyclovir 1,000 mg PO DAILY Tobacco use date assessed: 02/27/25 Dental Screening Dental Screen Date: 02/27/25 Did you have a dental visit in the last 12 months?: Yes Did you have a dental problem in the last 6 months where you did not have access to dental care?: No Was dental information given to patient?: Patient has dentist HPI HPI Comments History of Present Illness Details 29-year-old female schizophrenia, 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 Was taking pantoprazole 40mg at HS but ran out; wonders if can have this back. - R Knee pain worsens with prolonged inactivity, use of a brace for immobilization noticed. Worse upon waking as sleep w/o brace. Hard time walking generally speaking. Would like w/c. Requesting meds for pain but not controlled substances. Had good effect with prednisone in the past. - Controlled cough with regular nebulizer treatments. - Ensure nutritional supplement, taking twice per day. Maria D is requesting 3 times per day as she really likes it. Review of Systems - Cardiovascular: Reports elevated heart rate - baseline. - Gastrointestinal: Reports abdominal burning; Admits appetite decrease. - Musculoskeletal: Reports knee pain with swelling, worsened with heat. - Respiratory: Reports chronic cough.n. - General: Reports tiredness; Denies recent increased activity. Physical Exam - Vitals- Blood pressure 119/73 mmHg, heart rate 125 bpm. - Musculoskeletal- R Knee brace observed, removed, R knee obvious deformity - General- Patient appeared tired but cooperative during the consultation, Dad and Mom present during call. - Coughing, paroxysmal at times. - skin jaundiced, eyes sunken, appears chronically ill and frail Assessment and Plan Abdominal Pain - refill pantoprazole to be take at HS, cont carafate . R Knee Pain with Swelling - Celebrex prescribed; wear immobilizer to bed; gentle stretching and exercise; heat and ice alternating. 3 days of prednisone. WC rx to be sent to DME supplier. Cough - Continue nebulizer; Nutrition - Ensure prescribed TID. Cancer - Supportive care addressed. Hospice recommended. Not ready yet. Will cont to follow along. Telehealth Attestation The visit was conducted via telemedicine, and all documentation is accurate and complete based on the consultation. The patient has been explained that this is an interactive (audio/video) telehealth encounter and what that consists of. The patient understands and wishes to proceed. [employer] platform was used. Total time spent caring for the patient today was 31 minutes. This includes time spent before the visit reviewing the chart, time spent during the visit, and time spent after the visit on documentation, reviewing laboratory results, diagnostic imaging, medications, performing a medically necessary evaluation, counseling on diagnoses, care coordination, ordering appropriate tests, ordering appropriate medications, review of tests performed by other providers, reporting test results with the patient, communication with other healthcare providers. [facility] Medical History Back pain Tremor Imbalance Incontinence Memory loss Schizoaffective disorder Anxiety and depression Genital herpes Acid reflux IBS (irritable bowel syndrome) Cancer Surgical History History of creation of ostomy Cancer determined by lung biopsy Family History Father Substance use disorder High blood pressure Alcoholism in family Mother Substance use disorder Mental health disorder Alcoholism in family Social History (Updated 02/27/25 @ 15:43 by Carole Navarrete MA) Housing: House Alcohol intake: never Patient Tobacco Use Status: Never used Tobacco e-Cigarette/Vaping Use: Never Used Second Hand Smoke Exposure: No service: No Current occupational status: disabled Cognitive needs: No Hearing needs: No Vision needs: Yes (reading glasses) Questionnaire PHQ-9 Over the last 2 weeks, how often have you been bothered by any of the following problems? 23267 - PHQ-9 Billing: Patient declined-do not bill Source: Developed by Drs. Garland Duron, Kristy Rincon, Christiano Terry and colleagues, with an educational doug from [employer]. Thrive Questionnaire Date Thrive assessed: 02/26/25 I am a: Parent/Caregiver What is your living situation today?: I have a steady place to live Within the past 12 months, did the food you bought not last and you didn't have the money to get more?: Never true Within the past 12 months, did you worry whether your food would run out before you got money to buy more?: Never true Do you have trouble paying for medicines?: No Do you have trouble getting transportation to medical appointments?: No Do you have trouble paying your heating and electricity bill?: I choose not to answer this question Do you have trouble taking care of your child, family member or friend?: No Do you have trouble with day-to-day activities such as bathing, preparing meals, shopping, managing finances, etc.?: I choose not to answer this question Are you currently unemployed and looking for a job?: I choose not to answer this question Are you interested in more education?: I choose not to answer this question Please select the resources that you would like help with: None Currently or been in a relationship where the following occur: No concerns reported THRIVE Score: 0 AUDIT C Alcohol Use Questionnaire (AUDIT-C) 1. How often do you have a drink containing alcohol?: Never 3. How often do you have six or more drinks on one occasion?: Never Total Score: 0 CLINTON-7 AMB Questionnaire CLINTON-7 Date CLINTON - 7 assessed: 02/27/25 Feeling nervous, anxious, or on edge: 3 = Nearly every day Not being able to stop or control worryin = Nearly every day Worrying too much about different things: 3 = Nearly every day Trouble relaxin = Nearly every day Being so restless that it is hard to sit still: 3 = Nearly every day Becoming easily annoyed or irritable: 3 = Nearly every day Feeling afraid as if something awful might happen: 3 = Nearly every day Total CLINTON-7 score (0-4 normal; 5-9 mild; 10-14 moderate; 15-21 severe): 21 Source: Developed by Drs. Garland Duron, Kristy Rincon, Christiano Terry and colleagues, with an educational doug from [employer] CLINTON-7 Assessment Billing CLINTON-7 Assessment Tool: CLINTON-7 Assessment 47643 Physical exam (Primary Care) Tobacco/Smoking Status: Tobacco use Status Tobacco use date assessed 02/27/25 02/27/25 15:40 Patient Tobacco Use Status Never used Tobacco 02/27/25 15:43 e-Cigarette/Vaping Use Never Used 02/27/25 15:43 Thrive Assessment: Date of Thrive Assessment Date Thrive assessed 02/26/25 02/27/25 15:40 Currently or been in a relationship where the following occur: No concerns reported Telehealth Telehealth Telehealth Platform: [facility] Location of provider rendering services: practice address Location of patient: address on file Patient Identification confirmed using: Name, : Yes Telehealth method: video Patient verbally consented to treatment: Yes Patient verbally consented to billing insurance company: Yes Patient informed of any privacy concerns related to visit: Yes Minutes spent on Phone/Video with Pt.: 20 Coding Level of Care Code Tele Est Pt Level 4 (96554) Complex EM visit Add On G2211 Diagnoses Gastroesophageal reflux disease without esophagitis K21.9 Esophagitis presence: without esophagitis End of life care Z51.5 Rectal adenocarcinoma metastatic to lung C20; C78.00 Chronic pain of right knee M25.561; G89.29 Chronicity: chronic Additional Codes CLINTON-7 Assessment Billing - CLINTON-7 Assessment Tool: CLINTON-7 Assessment 99988 ([id number]) Assessment & Plan Assessment & Plan (1) Acid reflux: Code(s): K21.9 - Gastro-esophageal reflux disease without esophagitis Category: Medical Qualifiers: Esophagitis presence: without esophagitis Qualified Code(s): K21.9 - Gastro-esophageal reflux disease without esophagitis (2) End of life care: Code(s): Z51.5 - Encounter for palliative care Category: Medical (3) Rectal adenocarcinoma metastatic to lung: Code(s): C20 - Malignant neoplasm of rectum; C78.00 - Secondary malignant neoplasm of unspecified lung Category: Medical (4) Right knee pain: Code(s): M25.561 - Pain in right knee Category: Medical Qualifiers: Chronicity: chronic Qualified Code(s): M25.561 - Pain in right knee; G89.29 - Other chronic pain Plan . Medications: New celecoxib (Celebrex) 50 mg PO BID PRN 60 caps 0RF pain prednisone 5 mg PO DAILY 3 tabs 0RF Changed From docusate sodium hold for diarrhea 100 mg PO BID 60 caps 5RF To docusate sodium hold for diarrhea 100 mg PO BID PRN From food supplemt, lactose-reduced (Ensure Original oral liquid) TAKE 1 BOTTLE, 237ML, DAILY 1 ea PO DAILY 7,110 mL 12RF To food supplemt, lactose-reduced (Ensure Original oral liquid) TAKE 1 BOTTLE, 237ML, three times per day 1 ea PO TID 21,330 mL 12RF Refilled pantoprazole 40 mg PO DAILY 90 tabs 3RF
[2025-02-27 16:38] VITALS: BP 119/73; PULSE 125; BMI 19.6
== END 2025-02-27 16:47 | disposition home or self-care (01) ==
LOC: HO.HMCFM 15:45
PROVIDERS: PCP Nurse Practitioner Family; Visit Provider Nurse Practitioner Family
DX: K21.9 Gastro-esophageal reflux disease without esophagitis (principal); C20 Malignant neoplasm of rectum; C78.00 Secondary malignant neoplasm of unspecified lung; Z51.5 Encounter for palliative care; M25.561 Pain in right knee; G89.29 Other chronic pain

== ENCOUNTER → 2025-02-27 15:45 | Outpatient (BNVA) | payer OTHER, SELFPAY | PROVIDERS: PCP Nurse Practitioner Family; Visit Provider Nurse Practitioner Family | DX: K21.9 Gastro-esophageal reflux disease without esophagitis (principal); C20 Malignant neoplasm of rectum; C78.00 Secondary malignant neoplasm of unspecified lung; M25.561 Pain in right knee; G89.29 Other chronic pain; Z93.3 Colostomy status; Z51.5 Encounter for palliative care; Z13.30 Encounter for screening examination for mental health and behavioral disorders, unspecified | CPT/HCPCS: 96127 ==